=== PATIENT | female | born 1985 | race Caucasian/White ===

== ENCOUNTER 2018-02-09 14:41 | Emergency (ER) | payer SELFPAY ==
--- NOTE | 2018-02-09 15:45 | EDM.PDOCBH ---
ED HPI GENERAL MEDICAL PROBLEM - General Chief Complaint: General Stated Complaint: health check Time Seen by Provider: 02/09/18 15:11 Source of Information: Reports: Patient, Family (mother and father) History Limitations: Reports: No Limitations - History of Present Illness INITIAL COMMENTS - FREE TEXT/NARRATIVE: 32-year-old female is brought in by her parents over her mental health concerns. Reportedly the patient has been residing in [place] for the last few years. Parents report the end of January they received a phone call from her asking to come and get her. She apparently had moved into a hotel room. She was previously living with a sister [place]. She ran out of money and was asking for them to come and get her. They report they brought her home about 5 days ago. They have not yet established with a primary care mental health provider since returning to [place]. The patient is a poor historian. She laughs at inappropriate times is very tangential. She does not directly answer questions. She is denying any chronic medical conditions. She denies any current pain. No headaches, nausea, vomiting or any abdominal pain. The patient repeats over and over again that she just wants her own place she wants to go to "my place ". Her mother indicates that she is talking about the hotel that she was staying at [place]. Patient does not recall her last menstrual period. History is primarily obtained from her mother. 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 The patient reports last and she views meth was 2 weeks ago. Mother reports that there is been several questionable diagnosis including bipolar and schizoaffective, however, due to her methamphetamine abuse the diagnosis has been unclear. She is not currently on any psychiatric medications. She has been hospitalized numerous times for psychiatric evaluation. Patient reports that she's had suicide attempts in the past. She states that she is "made a noose several times ". She also reports that she has drink excessive amounts of alcohol in an attempt to take her life on several occasions. Refuses to tell me when her last attempt was. Parents became concerned today when she taxted her older sister [place] that she wanted to take her life. When parents asked about this she only will laugh. She does acknowledge that she sent this text but states this is all "part of my comedy. " Mom reports the methamphetamine abuse and the patient also reports that she abuses marijuana. Denies any major alcohol abuse. Past history includes a repair of a bimalleolar fracture to the ankle. She also had a with sounds like a benign cyst on her uterus which was drained about a year ago. Patient is not on any medications currently. Has been taking Tylenol PM and Advil PM to help with sleep. - Related Data Allergies Allergy/AdvReac Type Severity Reaction Status Date / Time Penicillins Allergy Hives Verified 02/09/18 14:55 Home Meds: Home Meds Gabapentin [Neurontin] 300 mg PO ASDIRECTED 02/09/18 [History] atoMOXetine HCl [Strattera] 0 mg PO DAILY 02/09/18 [History] hydrOXYzine HCl [hydrOXYzine] 10 mg PO DAILY 02/09/18 [History] Past Medical History Psychiatric History: Reports: ADD, ADHD, Other (See Below) Other Psychiatric History: possible bipolar, possible schizo, possible richi; 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 has been doing drugs since 28 yrs old; pt smokes,snorts and eats it.last treatment program about 6 months in [place] and feels it was about 9 month. Social & Family History - Tobacco Use Smoking Status *Q: Current Every Day Smoker Years of Tobacco use: 17 Packs/Tins Daily: 0.5 - Caffeine Use Caffeine Use: Reports: Coffee, Energy Drinks, Soda, Tea ED ROS GENERAL - Review of Systems Review Of Systems: See Below Constitutional: Denies: Fever, Chills, Decreased Appetite GI/Abdominal: Denies: Abdominal Pain, Nausea, Vomiting Neurological: Denies: Headache Psychiatric: Reports: Suicidal Ideation ED EXAM, BEHAVIORAL HEALTH - Physical Exam Exam: See Below Exam Limited By: No Limitations General Appearance: Alert, WD/WN, No Apparent Distress Eye Exam: Bilateral Eye: Normal Inspection Ears: Normal External Exam, Normal Canal, Hearing Grossly Normal, Normal TMs Throat/Mouth: Normal Inspection, Normal Lips, Normal Voice, No Airway Compromise Neck: Normal Inspection Respiratory/Chest: No Respiratory Distress, Lungs Clear, Normal Breath Sounds Cardiovascular: Normal Peripheral Pulses, No Murmur, Tachycardia GI/Abdominal: Soft, Non-Tender Neurological: Alert, Normal Mood/Affect, Normal Cognition Psychiatric: Poor Eye Contact, Uncooperative, Suicidal Thoughts, Tangential Thoughts, Other (inappropriate responses, delusions) Skin Exam: Warm, Dry, Normal color EKG INTERPRETATION EKG Date: 02/09/18 Time: 15:45 Rhythm: Other (sinus tach) Rate (Beats/Min): 126 [place]: Normal P-Wave: Present QRS: Normal ST-T: Normal QT: Normal Comparison: NA - No Prior EKG EKG Interpretation Comments: sinus tachycardia at 126 bpm. No ischemic changes. No LAD. No LVH. o IVCD. QTc within normal limits. Reviewed by myself and Dr. Wagner. COURSE, BEHAVIORAL HEALTH COMP - Course Vital Signs: Last Vital Signs Temp 98.1 F 02/09/18 19:55 Pulse 110 H 02/09/18 19:55 Resp 16 02/09/18 19:55 BP 137/92 H 02/09/18 19:55 Pulse Ox 98 02/09/18 19:55 Orders, Labs, Meds: Active Orders 24 hr Category Date Time Status EKG 12 Lead [EKG Documentation Completion] [RC] STAT Care 02/09/18 15:36 Active Pelvic Exam, Set Up [RC] ASDIRECTED Care 02/09/18 17:05 Active Suicide Precautions [RC] ASDIRECTED Care 02/09/18 15:42 Active OB Transvaginal [US] Stat Exams 02/09/18 17:05 Taken DRUG SCREEN, URINE [URCHEM] Stat Lab 02/09/18 16:44 Ordered GC/CHLAMYDIA BY PCR [MOLEC] Stat Lab 02/09/18 19:30 Ordered HCG QUANTITATIVE,SERUM [CHEM] Stat Lab 02/09/18 15:46 Ordered UA W/MICROSCOPIC [URIN] Stat Lab 02/09/18 16:44 Ordered One To One Therapy [BH] Stat Oth 02/09/18 15:42 Ordered Laboratory Tests 02/09/18 02/09/18 02/09/18 Range/Units 15:46 15:46 15:46 WBC 15.33 H (3.98-10.04) K/mm3 RBC 4.65 (3.98-5.22) M/mm3 Hgb 13.6 (11.2-15.7) gm/L Hct 39.6 (34.1-44.9) % MCV 85.2 (79.4-94.8) fl MCH 29.2 (25.6-32.2) pg MCHC 34.3 (32.2-35.5) g/dl RDW Std Deviation 40.5 (36.4-46.3) fL Plt Count 426 H (182-369) K/mm3 MPV 9.0 L (9.4-12.3) fl Neut % (Auto) 75.6 H (34.0-71.1) % Lymph % (Auto) 15.7 L (19.3-51.7) % [place] % (Auto) 6.5 (4.7-12.5) % Eos % (Auto) 1.7 (0.7-5.8) Baso % (Auto) 0.3 (0.1-1.2) % Neut # (Auto) 11.61 H (1.56-6.13) K/mm3 Lymph # (Auto) 2.40 (1.18-3.74) K/mm3 [place] # (Auto) 0.99 H (0.24-0.36) K/mm3 Eos # (Auto) 0.26 (0.04-0.36) K/mm3 Baso # (Auto) 0.04 (0.01-0.08) K/mm3 Sodium 138 (136-145) mEq/L Potassium 3.2 L (3.5-5.1) mEq/L Chloride 102 (98-107) mEq/L Carbon Dioxide 23 (21-32) mEq/L Anion Gap 16.2 H (5-15) BUN 10 (7-18) mg/dL Creatinine 0.8 (0.55-1.02) mg/dL Est Cr Clr Drug Dosing 99.99 mL/min Estimated GFR (MDRD) > 60 (>60) mL/min BUN/Creatinine Ratio 12.5 L (14-18) Glucose 108 H (74-106) mg/dL Calcium 8.3 L (8.5-10.1) mg/dL Total Bilirubin 0.2 (0.2-1.0) mg/dL AST 19 (15-37) U/L ALT 42 (14-59) U/L Alkaline Phosphatase 73 (46-116) U/L Total Protein 6.9 (6.4-8.2) g/dl Albumin 3.4 (3.4-5.0) g/dl Globulin 3.5 gm/dL Albumin/Globulin Ratio 1.0 (1-2) TSH 3rd Generation 4.243 H (0.358-3.74) uIU/mL HCG, Qual Positive H (NEGATIVE) HCG, Quant mIU/mL Urine Color (Yellow) Urine Appearance (Clear) Urine pH (5.0-8.0) Ur Specific Longs (1.005-1.030) Urine Protein (Negative) Urine Glucose (UA) (Negative) Urine Ketones (Negative) Urine Occult Blood (Negative) Urine Nitrite (Negative) Urine Bilirubin (Negative) Urine Urobilinogen (0.2-1.0) Ur Leukocyte Esterase (Negative) Urine RBC (0-5) /hpf Urine WBC (0-5) /hpf Ur Epithelial Cells (0-5) /hpf Urine Bacteria (FEW) /hpf Urine Mucus (FEW) /hpf Salicylates (2.8-20) mg/dL Urine Opiates Screen (NEGATIVE) Ur Buprenorphine Scrn (NEGATIVE) Ur Oxycodone Screen (NEGATIVE) Urine Methadone Screen (NEGATIVE) Ur Propoxyphene Screen (NEGATIVE) Acetaminophen 10 (10-30) ug/mL Ur Barbiturates Screen (NEGATIVE) Ur Tricyclics Screen (NEGATIVE) Ur Phencyclidine Scrn (NEGATIVE) Ur Amphetamine Screen (NEGATIVE) U Methamphetamines Scrn (NEGATIVE) U Benzodiazepines Scrn (NEGATIVE) U Cocaine Metab Screen (NEGATIVE) U Marijuana (THC) Screen (NEGATIVE) Ethyl Alcohol 0.00 (0.00) gm% 02/09/18 02/09/18 02/09/18 Range/Units 15:46 15:46 16:44 WBC (3.98-10.04) K/mm3 RBC (3.98-5.22) M/mm3 Hgb (11.2-15.7) gm/L Hct (34.1-44.9) % MCV (79.4-94.8) fl MCH (25.6-32.2) pg MCHC (32.2-35.5) g/dl RDW Std Deviation (36.4-46.3) fL Plt Count (182-369) K/mm3 MPV (9.4-12.3) fl Neut % (Auto) (34.0-71.1) % Lymph % (Auto) (19.3-51.7) % [place] % (Auto) (4.7-12.5) % Eos % (Auto) (0.7-5.8) Baso % (Auto) (0.1-1.2) % Neut # (Auto) (1.56-6.13) K/mm3 Lymph # (Auto) (1.18-3.74) K/mm3 [place] # (Auto) (0.24-0.36) K/mm3 Eos # (Auto) (0.04-0.36) K/mm3 Baso # (Auto) (0.01-0.08) K/mm3 Sodium (136-145) mEq/L Potassium (3.5-5.1) mEq/L Chloride (98-107) mEq/L Carbon Dioxide (21-32) mEq/L Anion Gap (5-15) BUN (7-18) mg/dL Creatinine (0.55-1.02) mg/dL Est Cr Clr Drug Dosing mL/min Estimated GFR (MDRD) (>60) mL/min BUN/Creatinine Ratio (14-18) Glucose (74-106) mg/dL Calcium (8.5-10.1) mg/dL Total Bilirubin (0.2-1.0) mg/dL AST (15-37) U/L ALT (14-59) U/L Alkaline Phosphatase (46-116) U/L Total Protein (6.4-8.2) g/dl Albumin (3.4-5.0) g/dl Globulin gm/dL Albumin/Globulin Ratio (1-2) TSH 3rd Generation (0.358-3.74) uIU/mL HCG, Qual (NEGATIVE) HCG, Quant 5110.0 mIU/mL Urine Color Light yellow (Yellow) Urine Appearance Slt cloudy H (Clear) Urine pH 7.0 (5.0-8.0) Ur Specific Longs 1.025 (1.005-1.030) Urine Protein Negative (Negative) Urine Glucose (UA) Negative (Negative) Urine Ketones Negative (Negative) Urine Occult Blood Negative (Negative) Urine Nitrite Negative (Negative) Urine Bilirubin Negative (Negative) Urine Urobilinogen 0.2 (0.2-1.0) Ur Leukocyte Esterase Trace H (Negative) Urine RBC 0-5 (0-5) /hpf Urine WBC 0-5 (0-5) /hpf Ur Epithelial Cells 5-10 H (0-5) /hpf Urine Bacteria Not seen (FEW) /hpf Urine Mucus Not seen (FEW) /hpf Salicylates 2.8 (2.8-20) mg/dL Urine Opiates Screen (NEGATIVE) Ur Buprenorphine Scrn (NEGATIVE) Ur Oxycodone Screen (NEGATIVE) Urine Methadone Screen (NEGATIVE) Ur Propoxyphene Screen (NEGATIVE) Acetaminophen (10-30) ug/mL Ur Barbiturates Screen (NEGATIVE) Ur Tricyclics Screen (NEGATIVE) Ur Phencyclidine Scrn (NEGATIVE) Ur Amphetamine Screen (NEGATIVE) U Methamphetamines Scrn (NEGATIVE) U Benzodiazepines Scrn (NEGATIVE) U Cocaine Metab Screen (NEGATIVE) U Marijuana (THC) Screen (NEGATIVE) Ethyl Alcohol (0.00) gm% 02/09/18 Range/Units 16:44 WBC (3.98-10.04) K/mm3 RBC (3.98-5.22) M/mm3 Hgb (11.2-15.7) gm/L Hct (34.1-44.9) % MCV (79.4-94.8) fl MCH (25.6-32.2) pg MCHC (32.2-35.5) g/dl RDW Std Deviation (36.4-46.3) fL Plt Count (182-369) K/mm3 MPV (9.4-12.3) fl Neut % (Auto) (34.0-71.1) % Lymph % (Auto) (19.3-51.7) % [place] % (Auto) (4.7-12.5) % Eos % (Auto) (0.7-5.8) Baso % (Auto) (0.1-1.2) % Neut # (Auto) (1.56-6.13) K/mm3 Lymph # (Auto) (1.18-3.74) K/mm3 [place] # (Auto) (0.24-0.36) K/mm3 Eos # (Auto) (0.04-0.36) K/mm3 Baso # (Auto) (0.01-0.08) K/mm3 Sodium (136-145) mEq/L Potassium (3.5-5.1) mEq/L Chloride (98-107) mEq/L Carbon Dioxide (21-32) mEq/L Anion Gap (5-15) BUN (7-18) mg/dL Creatinine (0.55-1.02) mg/dL Est Cr Clr Drug Dosing mL/min Estimated GFR (MDRD) (>60) mL/min BUN/Creatinine Ratio (14-18) Glucose (74-106) mg/dL Calcium (8.5-10.1) mg/dL Total Bilirubin (0.2-1.0) mg/dL AST (15-37) U/L ALT (14-59) U/L Alkaline Phosphatase (46-116) U/L Total Protein (6.4-8.2) g/dl Albumin (3.4-5.0) g/dl Globulin gm/dL Albumin/Globulin Ratio (1-2) TSH 3rd Generation (0.358-3.74) uIU/mL HCG, Qual (NEGATIVE) HCG, Quant mIU/mL Urine Color (Yellow) Urine Appearance (Clear) Urine pH (5.0-8.0) Ur Specific [place] (1.005-1.030) Urine Protein (Negative) Urine Glucose (UA) (Negative) Urine Ketones (Negative) Urine Occult Blood (Negative) Urine Nitrite (Negative) Urine Bilirubin (Negative) Urine Urobilinogen (0.2-1.0) Ur Leukocyte Esterase (Negative) Urine RBC (0-5) /hpf Urine WBC (0-5) /hpf Ur Epithelial Cells (0-5) /hpf Urine Bacteria (FEW) /hpf Urine Mucus (FEW) /hpf Salicylates (2.8-20) mg/dL Urine Opiates Screen Negative (NEGATIVE) Ur Buprenorphine Scrn Negative (NEGATIVE) Ur Oxycodone Screen Negative (NEGATIVE) Urine Methadone Screen Negative (NEGATIVE) Ur Propoxyphene Screen Negative (NEGATIVE) Acetaminophen (10-30) ug/mL Ur Barbiturates Screen Negative (NEGATIVE) Ur Tricyclics Screen Negative (NEGATIVE) Ur Phencyclidine Scrn Negative (NEGATIVE) Ur Amphetamine Screen Negative (NEGATIVE) U Methamphetamines Scrn Negative (NEGATIVE) U Benzodiazepines Scrn Negative (NEGATIVE) U Cocaine Metab Screen Negative (NEGATIVE) U Marijuana (THC) Screen Negative (NEGATIVE) Ethyl Alcohol (0.00) gm% Medications Discontinued Medications Generic Name Dose Route Start Last Admin Trade Name Freq PRN Reason Stop Dose Admin Potassium Chloride 40 meq 02/09/18 16:41 02/09/18 17:23 Klor-Con M20 PO 02/09/18 16:42 40 meq ONETIME ONE Administration Re-Assessment/Re-Exam: 17:05 HCG returned positive. I then ordered a quantitative. it is 5000. To ensure that she does not have anectopic or other complications I ordered a transvaginal ultrasound. I did perform a pelvic exam which did not show any additional bleeding. Cervix was closed. Informed patient of her lab results. EKG shows sinus tachycardia. Patient denies any vaginal bleeding. She reports some cramping. 17:55 I informed the patient's parents of the lab results as they are directly involved in her care and given her stat will need to help ensure that she gets proper care when she returns. Asked about the gabapentin, Strattera and hydroxyzine she is listed as being on. Mom states this far she knows she has not been taking these recently. The only medication she has been receiving recently has been Tylenol when necessary Advil PM to help her sleep. Mom reports that she has not slept in several weeks. Mom also reports that she was previously on Wellbutrin and what to do. She did not do well on Wellbutrin and this caused her fair amount of agitation. Had significant weight gain on the what to do. e 19:51 First trimester obstetrical ultrasound: Multiple real-time images were obtained transvaginally. Comparison: No previous study for current . Dates: LMP: ? Current ultrasound: FRANCIA 10/06/18, gestational age 5 weeks 6 days Single intrauterine gestational sac is seen. Yolk sac is noted. Small pole appears to be present. No subchorionic hemorrhage is seen. Maternal ovaries appear within normal limits. Measurements: Gestational sac: 0.73 cm - 5 weeks 3 days [place]-rump length: 0.26 cm - 5 weeks 6 days Heart rate: No cardiac activity is seen at this time. Impression: 1. Single intrauterine gestation. Dates as noted above. 2. No heart activity is seen most likely relating to early gestational age. Recommend follow-up study in 11 days to further evaluate. 20:24 Vitals at this time her heart rate of 110, temp of 98.1, blood pressure 137/96 and respirations of 16. [facility] in [place] is full. Spoke with Ra, Dr. Johnston, psychiatist in [place]. She agrees to accept the patient. Emergency jail paperwork has been filed. She will transferred by [facility] Department to [place] [facility]. Updated parents on the patient's stay. She will go to [place]. Medical Clearance: 02/09/18 20:27 Patient is medically clear to go to [facility] in [place]. Dr. Jamarcus grant. Emergency jail paperwork filed. She'll go by . Recommended that she follow-up with OB when she returns. Discharge vs Psych Eval/Treatment:: 02/09/18 20:28 Patient to go to [facility] in [place]. Dr. desire grant. She'll be a direct admission to the psychiatry floor. Departure - Departure Time of Disposition: 20:28 Disposition: DC/Tfer to Psych Hosp/Unit 65 Condition: Fair Clinical Impression: Psychotic disorder, , History of drug abuse - Discharge Information Referrals: PCP,Not In Area [Primary Care Provider] - Forms: ED Department Discharge Additional Instructions: Patient to go by [facility] to the [facility]. Dr. Hawk accepting. - My Orders Last 24 Hours: My Active Orders 02/09/18 15:36 EKG 12 Lead [EKG Documentation Completion] [RC] STAT 02/09/18 15:42 Suicide Precautions [RC] ASDIRECTED One To One Therapy [BH] Stat 02/09/18 15:46 HCG QUANTITATIVE,SERUM [CHEM] Stat 02/09/18 16:44 DRUG SCREEN, URINE [URCHEM] Stat UA W/MICROSCOPIC [URIN] Stat 02/09/18 17:05 Pelvic Exam, Set Up [RC] ASDIRECTED OB Transvaginal [US] Stat 02/09/18 19:30 GC/CHLAMYDIA BY PCR [MOLEC] Stat - Assessment/Plan Last 24 Hours: My Active Orders 02/09/18 15:36 EKG 12 Lead [EKG Documentation Completion] [RC] STAT 02/09/18 15:42 Suicide Precautions [RC] ASDIRECTED One To One Therapy [BH] Stat 02/09/18 15:46 HCG QUANTITATIVE,SERUM [CHEM] Stat 02/09/18 16:44 DRUG SCREEN, URINE [URCHEM] Stat UA W/MICROSCOPIC [URIN] Stat 02/09/18 17:05 Pelvic Exam, Set Up [RC] ASDIRECTED OB Transvaginal [US] Stat 02/09/18 19:30 GC/CHLAMYDIA BY PCR [MOLEC] Stat
[2018-02-09 16:20] LABS: ACETAMINOPHEN 10 ug/mL (10-30)
[2018-02-09] MEDS ORDERED: Potassium Chloride 20 MEQ Tab.ER PO ONE (16:41)
[2018-02-09 21:20] LABS: C. TRACHOMATIS BY PCR NOT DETECTED; N. GONORRHOEAE BY PCR NOT DETECTED
--- NOTE | 2018-02-10 14:16 | US ---
First trimester obstetrical ultrasound: Multiple real-time images were obtained transvaginally. Comparison: No previous study for current . Dates: LMP: ? Current ultrasound: FRANCIA 10/06/18, gestational age 5 weeks 6 days Single intrauterine gestational sac is seen. Yolk sac is noted. Small pole appears to be present. No subchorionic hemorrhage is seen. Maternal ovaries appear within normal limits. Measurements: Gestational sac: 0.73 cm - 5 weeks 3 days [place]-rump length: 0.26 cm - 5 weeks 6 days Heart rate: No cardiac activity is seen at this time. Impression: 1. Single intrauterine gestation. Dates as noted above. 2. No heart activity is seen most likely relating to early gestational age. Recommend follow-up study in 11 days to further evaluate. Diagnostic code #3 Agree with preliminary report issued by [facility] ([facility] preliminary report dictated on 02/09/18, 8:59 PM Central Time)
== END 2018-02-09 21:10 ==
LOC: JD.ED 14:41
DX: F29 Unspecified psychosis not due to a substance or known physiological condition (principal); F15.10 Other stimulant abuse, uncomplicated; F90.9 Attention-deficit hyperactivity disorder, unspecified type; F17.210 Nicotine dependence, cigarettes, uncomplicated; Z33.1 Pregnant state, incidental; Z88.0 Allergy status to penicillin; Z79.899 Other long term (current) drug therapy
CPT/HCPCS: 36415; 76817; 80053; 80306; 81001; 84443; 84702; 84703; 85025; 87210; 87491; 87591; 87808; 93005; 99285; A9270; G0480; 93010; 99284

== ENCOUNTER 2018-03-16 14:31 | Emergency (ER) | payer MEDICAID, OTHER ==
--- NOTE | 2018-03-16 15:07 | EDM.PDOC ---
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 Patient states for the past 3 days she's been expressing intermittent bleeding range from bright red blood in the morning upon awakening to light pink color with wiping after utilizing the bathroom. She's had some intermittent lower nominal cramps described as mild in nature. This is her first . She does not recall her last menstrual cycle. She has been sober from methamphetamines for almost 60 days when she found out she was . She does have a history of bipolar and has taken all her medications as prescribed. She is currently not smoking. Alcohol none. Recreational drug use none. Lower Pelvic Pain Score (Numeric/FACES): 2 - Related Data Allergies Allergy/AdvReac Type Severity Reaction Status Date / Time Penicillins Allergy Hives Verified 02/09/18 14:55 Home Meds: Home Meds hydrOXYzine HCl [hydrOXYzine] 10 mg PO DAILY 02/09/18 [History] Haloperidol [Haldol] 3 mg PO DAILY 03/16/18 [History] PNV95/Ferrous Fumarate/FA [ Tablet] 1 tab PO DAILY 03/16/18 [History] diphenhydrAMINE [Benadryl] 50 mg PO BEDTIME 03/16/18 [History] Past Medical History Psychiatric History: Reports: ADD, ADHD, Other (See Below) Other Psychiatric History: possible bipolar, possible schizo, possible richi; 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 has been doing drugs since 28 yrs old; pt smokes,snorts and eats it.last treatment program about 6 months in [place] and feels it was about 9 month. Social & Family History - Tobacco Use Smoking Status *Q: Current Every Day Smoker Years of Tobacco use: 4 Packs/Tins Daily: 1 - Caffeine Use Caffeine Use: Reports: Coffee, Soda, Tea - Recreational Drug Use Recreational Drug Use: Yes Recreational Drug Type: Reports: Marijuana/Hashish, Methamphetamine Other Recreational Drug Type: last used 60 days ago ED ROS GENERAL - Review of Systems Review Of Systems: ROS reveals no pertinent complaints other than HPI. ED EXAM - Physical Exam Exam: See Below Exam Limited By: No Limitations General Appearance: Alert, WD/WN, No Apparent Distress Ears: Hearing Grossly Normal Nose: Normal Inspection Throat/Mouth: Normal Voice, No Airway Compromise Neck: Normal Inspection, Supple Respiratory/Chest: No Respiratory Distress, Lungs Clear, Normal Breath Sounds, No Accessory Muscle Use Cardiovascular: Normal Peripheral Pulses, Regular Rate, Rhythm GI/Abdominal Exam: Normal Bowel Sounds, Soft, Non-Tender, No Organomegaly, No Distention Back Exam: Normal Inspection Extremities: Normal Inspection Neurological: Alert, Oriented, CN II-XII Intact, Normal Cognition, No Motor/ Sensory Deficits Psychiatric: Normal Affect, Normal Mood Skin Exam: Warm, Dry, Intact, Normal Color Course - Vital Signs Last Recorded V/S: Last Vital Signs Temp 98.4 F 03/16/18 14:43 Pulse 96 03/16/18 14:43 Resp 20 03/16/18 14:43 BP 118/82 03/16/18 14:43 Pulse Ox 99 03/16/18 14:43 - Orders/Labs/Meds Orders: Active Orders 24 hr Category Date Time Status ABO/RH TYPE [BBK] Stat Lab 03/16/18 15:25 Results DRUG SCREEN, URINE [URCHEM] Stat Lab 03/16/18 15:17 Ordered HCG QUALITATIVE,URINE [URCHEM] Stat Lab 03/16/18 15:17 Ordered PATIENT RETYPE [BBK] Stat Lab 03/16/18 15:25 Results Labs: Laboratory Tests 03/16/18 03/16/18 03/16/18 Range/Units 15:17 15:17 15:17 WBC (3.98-10.04) K/mm3 RBC (3.98-5.22) M/mm3 Hgb (11.2-15.7) gm/L Hct (34.1-44.9) % MCV (79.4-94.8) fl MCH (25.6-32.2) pg MCHC (32.2-35.5) g/dl RDW Std Deviation (36.4-46.3) fL Plt Count (182-369) K/mm3 MPV (9.4-12.3) fl Neutrophils % (Manual) (40-60) % Band Neutrophils % (0-10) % Lymphocytes % (Manual) (20-40) % Atypical Lymphs % % Monocytes % (Manual) (2-10) % Eosinophils % (Manual) (0.7-5.8) % Basophils % (Manual) (0.1-1.2) Platelet Estimate Plt Morphology Comment RBC Morph Comment Sodium (136-145) mEq/L Potassium (3.5-5.1) mEq/L Chloride (98-107) mEq/L Carbon Dioxide (21-32) mEq/L Anion Gap (5-15) BUN (7-18) mg/dL Creatinine (0.55-1.02) mg/dL Est Cr Clr Drug Dosing mL/min Estimated GFR (MDRD) (>60) mL/min BUN/Creatinine Ratio (14-18) Glucose (74-106) mg/dL Calcium (8.5-10.1) mg/dL Total Bilirubin (0.2-1.0) mg/dL AST (15-37) U/L ALT (14-59) U/L Alkaline Phosphatase (46-116) U/L C-Reactive Protein (<1.0) mg/dL Total Protein (6.4-8.2) g/dl Albumin (3.4-5.0) g/dl Globulin gm/dL Albumin/Globulin Ratio (1-2) TSH 3rd Generation (0.358-3.74) uIU/mL Urine Color Yellow (Yellow) Urine Appearance Slt cloudy H (Clear) Urine pH 7.0 (5.0-8.0) Ur Specific [place] 1.015 (1.005-1.030) Urine Protein 1+ H (Negative) Urine Glucose (UA) Negative (Negative) Urine Ketones Negative (Negative) Urine Occult Blood 3+ H (Negative) Urine Nitrite Negative (Negative) Urine Bilirubin Negative (Negative) Urine Urobilinogen 0.2 (0.2-1.0) Ur Leukocyte Esterase Negative (Negative) Urine RBC 5-10 H (0-5) /hpf Urine WBC 0-5 (0-5) /hpf Ur Epithelial Cells 10-20 H (0-5) /hpf Amorphous Sediment Moderate H (NOT SEEN) /hpf Urine Bacteria Few (FEW) /hpf Urine Mucus Not seen (FEW) /hpf Urine HCG, Qual Positive (NEGATIVE) Urine Opiates Screen Negative (NEGATIVE) Ur Buprenorphine Scrn Negative (NEGATIVE) Ur Oxycodone Screen Negative (NEGATIVE) Urine Methadone Screen Negative (NEGATIVE) Ur Propoxyphene Screen Negative (NEGATIVE) Ur Barbiturates Screen Negative (NEGATIVE) Ur Tricyclics Screen Negative (NEGATIVE) Ur Phencyclidine Scrn Negative (NEGATIVE) Ur Amphetamine Screen Negative (NEGATIVE) U Methamphetamines Scrn Negative (NEGATIVE) U Benzodiazepines Scrn Negative (NEGATIVE) U Cocaine Metab Screen Negative (NEGATIVE) U Marijuana (THC) Screen Negative (NEGATIVE) Blood Type 03/16/18 03/16/18 03/16/18 Range/Units 15:25 15:25 15:25 WBC 10.73 H (3.98-10.04) K/mm3 RBC 4.77 (3.98-5.22) M/mm3 Hgb 13.8 (11.2-15.7) gm/L Hct 40.5 (34.1-44.9) % MCV 84.9 (79.4-94.8) fl MCH 28.9 (25.6-32.2) pg MCHC 34.1 (32.2-35.5) g/dl RDW Std Deviation 37.4 (36.4-46.3) fL Plt Count 385 H (182-369) K/mm3 MPV 8.8 L (9.4-12.3) fl Neutrophils % (Manual) 65 H (40-60) % Band Neutrophils % 0 (0-10) % Lymphocytes % (Manual) 24 (20-40) % Atypical Lymphs % 0 % Monocytes % (Manual) 5 (2-10) % Eosinophils % (Manual) 6 H (0.7-5.8) % Basophils % (Manual) 0 L (0.1-1.2) Platelet Estimate Adequate Plt Morphology Comment Normal RBC Morph Comment Normal Sodium 139 (136-145) mEq/L Potassium 4.1 (3.5-5.1) mEq/L Chloride 103 (98-107) mEq/L Carbon Dioxide 25 (21-32) mEq/L Anion Gap 15.1 H (5-15) BUN 11 (7-18) mg/dL Creatinine 0.7 (0.55-1.02) mg/dL Est Cr Clr Drug Dosing 114.28 mL/min Estimated GFR (MDRD) > 60 (>60) mL/min BUN/Creatinine Ratio 15.7 (14-18) Glucose 95 (74-106) mg/dL Calcium 8.7 (8.5-10.1) mg/dL Total Bilirubin 0.2 (0.2-1.0) mg/dL AST 13 L (15-37) U/L ALT 21 (14-59) U/L Alkaline Phosphatase 60 (46-116) U/L C-Reactive Protein 1.9 H* (<1.0) mg/dL Total Protein 6.9 (6.4-8.2) g/dl Albumin 3.3 L (3.4-5.0) g/dl Globulin 3.6 gm/dL Albumin/Globulin Ratio 0.9 L (1-2) TSH 3rd Generation 2.739 (0.358-3.74) uIU/mL Urine Color (Yellow) Urine Appearance (Clear) Urine pH (5.0-8.0) Ur Specific [place] (1.005-1.030) Urine Protein (Negative) Urine Glucose (UA) (Negative) Urine Ketones (Negative) Urine Occult Blood (Negative) Urine Nitrite (Negative) Urine Bilirubin (Negative) Urine Urobilinogen (0.2-1.0) Ur Leukocyte Esterase (Negative) Urine RBC (0-5) /hpf Urine WBC (0-5) /hpf Ur Epithelial Cells (0-5) /hpf Amorphous Sediment (NOT SEEN) /hpf Urine Bacteria (FEW) /hpf Urine Mucus (FEW) /hpf Urine HCG, Qual (NEGATIVE) Urine Opiates Screen (NEGATIVE) Ur Buprenorphine Scrn (NEGATIVE) Ur Oxycodone Screen (NEGATIVE) Urine Methadone Screen (NEGATIVE) Ur Propoxyphene Screen (NEGATIVE) Ur Barbiturates Screen (NEGATIVE) Ur Tricyclics Screen (NEGATIVE) Ur Phencyclidine Scrn (NEGATIVE) Ur Amphetamine Screen (NEGATIVE) U Methamphetamines Scrn (NEGATIVE) U Benzodiazepines Scrn (NEGATIVE) U Cocaine Metab Screen (NEGATIVE) U Marijuana (THC) Screen (NEGATIVE) Blood Type O POSITIVE - Re-Assessments/Exams Free Text/Narrative Re-Assessment/Exam: Initial labs and studies will include: CBC, chem 14, CRP, urine drug screen, TSH , ABO/Rh type, HCG, UA, and OB transvaginal ultrasound. Labs reviewed: CBC essentially normal. CMP was essentially normal as well. CRP mildly elevated 1.9. TSH normal. UA 3+ occult blood consistent with vaginal bleeding, rbc's 5-10, urine epithelial cells 10-20, amorphous sediment moderate. Urine drug tox negative. Blood type: O+. 1617 Awaiting for ultrasound report. 03/16/18 16:37 First trimester obstetrical ultrasound: Multiple real-time images were obtained transvaginally. Comparison: Previous ultrasound exam at 02/09/18. Dates: Current ultrasound: FRANCIA 10/26/18, gestational age 8 weeks 0 days Previous ultrasound (02/09/18): FR[facility]IA 10/06/18, gestational age 10 weeks 6 days Single intrauterine gestation is seen. Amniotic fluid volume is normal. Measurements: [place]-rump length: 1.60 cm - 8 weeks 0 days Heart rate: No heart activity is seen. Maternal adnexa: Within normal limits Small subchorionic hemorrhage is seen. Impression: 1. Single intrauterine gestation. No heart activity is seen compatible with nonviable . 2. Small subchorionic hemorrhage is seen. Discussed results of ultrasound with the patient. She has an appt with Dr. Hidalgo scheduled for this coming Saturday and would like to speak with her in person to discuss options. [address] speak [address] Hidalgo, she will arrange an appt for the patient to be evaluated tomorrow. Her office will call the patient. The patient remained hemodynamically stable while under my care in the E.D. I discussed the concerning symptoms for which to returnto the E.D. with the patient/family. The patient/family verbalized understanding. All questions were answered. Departure - Departure Time of Disposition: 16:45 Disposition: Home, Self-Care 01 Condition: Good Clinical Impression: Incomplete - Discharge Information *PRESCRIPTION DRUG MONITORING PROGRAM REVIEWED*: Not Applicable *COPY OF PRESCRIPTION DRUG MONITORING REPORT IN PATIENT JOSE: Not Applicable Instructions: Miscarriage Referrals: Radha Hidalgo MD [Primary Care Provider] - Forms: ED Department Discharge Additional Instructions: Dr. Hidalgo's Office will call you tomorrow for appt time. Please return to the E.D. if you experience bleeding of more then one pad in one hour over two hrs. Please return if you develop any new or worsening pain or any new symptoms. Push the fluids. Take ibuprofen 600 mg's every 6 hrs for pain. - My Orders Last 24 Hours: My Active Orders 03/16/18 15:17 DRUG SCREEN, URINE [URCHEM] Stat HCG QUALITATIVE,URINE [URCHEM] Stat 03/16/18 15:25 ABO/RH TYPE [BBK] Stat PATIENT RETYPE [BBK] Stat - Assessment/Plan Last 24 Hours: My Active Orders 03/16/18 15:17 DRUG SCREEN, URINE [URCHEM] Stat HCG QUALITATIVE,URINE [URCHEM] Stat 03/16/18 15:25 ABO/RH TYPE [BBK] Stat PATIENT RETYPE [BBK] Stat
--- NOTE | 2018-03-16 16:24 | US ---
First trimester obstetrical ultrasound: Multiple real-time images were obtained transvaginally. Comparison: Previous ultrasound exam at 02/09/18. Dates: Current ultrasound: FR[facility]IA 10/26/18, gestational age 8 weeks 0 days Previous ultrasound (02/09/18): [facility] 10/06/18, gestational age 10 weeks 6 days Single intrauterine gestation is seen. Amniotic fluid volume is normal. Measurements: [place]-rump length: 1.60 cm - 8 weeks 0 days Heart rate: No heart activity is seen. Maternal adnexa: Within normal limits Small subchorionic hemorrhage is seen. Impression: 1. Single intrauterine gestation. No heart activity is seen compatible with nonviable . 2. Small subchorionic hemorrhage is seen. Diagnostic code #5
== END 2018-03-16 16:55 | disposition home or self-care (01) ==
LOC: JD.ED 14:31
DX: O03.4 Incomplete spontaneous abortion without complication (principal)
CPT/HCPCS: 36415; 76817; 76817-26; 80053; 80306; 81001; 81025; 84443; 85007; 85027; 86140; 86900; 86901; 99283; 99284-25

== ENCOUNTER 2020-07-20 15:13 | Emergency (ER) | payer BC, MEDICAID ==
[2020-07-20] MEDS ORDERED: Fluorescein 1 MG Ophth Strip EYERT ONE (15:41)
--- NOTE | 2020-07-20 15:44 | EDM.PDOC ---
ED HPI GENERAL MEDICAL PROBLEM - General Chief Complaint: Eye Problems Stated Complaint: R EYE COMPLAINT Time Seen by Provider: 07/20/20 15:26 Source of Information: Reports: Patient, RN Notes Reviewed History Limitations: Reports: No Limitations - History of Present Illness INITIAL COMMENTS - FREE TEXT/NARRATIVE: Patient is a 35-year-old female who presents to the ED for her right thigh pain. The patient notes that she woke up this morning with a reddened right eye, seem to be watery and painful. This developed around 6 AM. She denies any blurry vision or double vision, she does not wear contacts. She was not grinding any sort of metal or anything he does not think there is anything in her eye she does not characterize a foreign body sensation. She states it is just painful, and red. Eyelids do not seem to be red. Patient's had no fevers or chills, cough or shortness of breath. She notes she is light sensitive to the eye. Right Eye Pain Score (Numeric/FACES): 7 - Related Data Allergies Allergy/AdvReac Type Severity Reaction Status Date / Time Penicillins Allergy Hives Verified 02/09/18 14:55 Home Meds: Home Meds hydrOXYzine HCL [hydrOXYzine] 10 mg PO DAILY 02/09/18 [History] Pnv No.95/Ferrous Fum/Folic AC [ Tablet] 1 tab PO DAILY 03/16/18 [History] diphenhydrAMINE [Benadryl] 50 mg PO BEDTIME 03/16/18 [History] haloperidoL [Haldol] 3 mg PO DAILY 03/16/18 [History] Erythromycin Base [Erythromycin 0.5% Ophth Oint] 1 applic OP Q4H #1 tube 07/20/20 [Rx] Ketorolac [Acular 0.5% Ophth Soln] 1 drop OP Q6H PRN #1 bottle 07/20/20 [Rx] Past Medical History Psychiatric History: Reports: ADD, ADHD, Other (See Below) Other Psychiatric History: possible bipolar, possible schizo, possible richi; 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 has been doing drugs since 28 yrs old; pt smokes,snorts and eats it.last treatment program about 6 months in [place] and feels it was about 9 month. Social & Family History - Tobacco Use Tobacco Use Status *Q: Current Every Day Tobacco User Years of Tobacco use: 6 Packs/Tins Daily: 0.5 - Caffeine Use Caffeine Use: Reports: Soda - Recreational Drug Use Recreational Drug Use: No ED ROS GENERAL - Review of Systems Review Of Systems: Comprehensive ROS is negative, except as noted in HPI. ED EXAM GENERAL W FULL EYE - Physical Exam Exam: See Below Exam Limited By: No Limitations General Appearance: Alert, WD/WN, No Apparent Distress Eye Exam: Bilateral Eye: EOMI, Normal Inspection, PERRL Conjunctiva & Sclera: Bilateral: Injected (worse on the right) Cornea Exam: Right: Corneal Abrasion (to the center of eye just below the pupil), Left: Normal Appearance, Bilateral: Examined with Flourescein Extraocular Movements: Bilateral: Intact Pupils: Normal Accommodation Pupillary Size: Bilateral: 3 mm Pupillary Reaction: Bilateral: Brisk Respiratory/Chest: No Respiratory Distress, Lungs Clear, Normal Breath Sounds, No Accessory Muscle Use, Chest Non-Tender Cardiovascular: Normal Peripheral Pulses, Regular Rate, Rhythm, No Murmur Extremities: Normal Inspection, Normal Capillary Refill Neurological: Alert, Oriented, Normal Cognition, No Motor/Sensory Deficits Psychiatric: Normal Affect, Normal Mood Skin Exam: Warm, Dry, Intact, Normal Color, No Rash Course - Vital Signs Last Recorded V/S: Last Vital Signs Temp 97.7 F 07/20/20 15:20 Pulse 107 H 07/20/20 15:20 Resp 20 07/20/20 15:20 BP 159/107 H 07/20/20 15:20 Pulse Ox 98 07/20/20 15:20 - Orders/Labs/Meds Orders: Active Orders 24 hr Category Date Time Status Ketorolac [Acular 0.5% Ophth Soln] Med 07/20/20 17:00 Active 1 ml EYERT QID Medication Orders Ketorolac Tromethamine (Acular 0.5% Ophth Soln) 1 ml EYERT QID [facility] Meds: Medications Generic Name Dose Route Start Last Admin Trade Name Freq PRN Reason Stop Dose Admin Ketorolac Tromethamine 1 ml 07/20/20 17:00 Acular 0.5% Ophth Soln EYERT QID ADALI Discontinued Medications Generic Name Dose Route Start Last Admin Trade Name Freq PRN Reason Stop Dose Admin Erythromycin 1 gm 07/20/20 15:48 Erythromycin 0.5% Ophth Oint EYERT 07/20/20 15:49 ONETIME ONE Fluorescein Sodium 1 mg 07/20/20 15:41 07/20/20 15:44 Ful-Tiara EYERT 07/20/20 15:42 1 mg ONETIME ONE Administration - Re-Assessments/Exams Free Text/Narrative Re-Assessment/Exam: 07/20/20 15:43 Patient presents to the ED for her right eye pain. We will examine her eye with fluorescein for corneal abrasion, due to the patient rubbing her eye throughout the day. Likely she could have woken up with a conjunctivitis. Probably get her home with some antibiotic ointment or drops for management. 07/20/20 16:27 Patient left prior to getting her prescriptions from the ER. 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 Departure - Departure Time of Disposition: 15:50 Disposition: [place] 07 Condition: Good Clinical Impression: Corneal abrasion, right Qualifiers: Encounter type: initial encounter Qualified Code(s): S05.01XA - Injury of conjunctiva and corneal abrasion without foreign body, right eye, initial encounter - Discharge Information *PRESCRIPTION DRUG MONITORING PROGRAM REVIEWED*: No *COPY OF PRESCRIPTION DRUG MONITORING REPORT IN PATIENT JOSE: No Prescriptions: Ketorolac [Acular 0.5% Ophth Soln] 1 drop OP Q6H PRN #1 bottle PRN Reason: Pain Erythromycin Base [Erythromycin 0.5% Ophth Oint] 1 applic OP Q4H #1 tube Instructions: Corneal Abrasion, [id number] Referrals: Michael Alvarez MD [Primary Care Provider] - Forms: ED Department Discharge Additional Instructions: You have been evaluated in the ED today for your right eye pain/redness. You were identified to have a corneal abrasion to the right eye. You were given some pain drops for your eye, ketorolac, please instill 2 drops to the affected eye every 6 hours at least for the next 24 hours . You may use this up to 2-3 days if needed. Please use the erythromycin ointment, 1 cm ribbon to the lower affected eyelid margin 4 times daily for the next 3-5 days. Recommend that you follow up with optometry [facility] for a more thorough evaluation and to make sure that everything is healing appropriately. You will have to call around and schedule yourself an appointment with the next available provider if you do not already have a current eye doctor. Please return to the ED if your symptoms should change or worsen. Sepsis Event Note (ED) - Evaluation Sepsis Screening Result: No Definite Risk - Focused Exam Vital Signs: Vital Signs Temp Pulse Resp BP Pulse Ox 07/20/20 15:20 97.7 F 107 H 20 159/107 H 98 - My Orders Last 24 Hours: My Active Orders 07/20/20 17:00 Ketorolac [Acular 0.5% Ophth Soln] 1 ml EYERT QID - Assessment/Plan Last 24 Hours: My Active Orders 07/20/20 17:00 Ketorolac [Acular 0.5% Ophth Soln] 1 ml EYERT QID
[2020-07-20] MEDS ORDERED: Erythromycin Base 0.5% Ophth Oint 1 GM Tube EYERT ONE (15:48)
[2020-07-20] MEDS ORDERED: Ketorolac 0.5% Ophth Soln 5 ML Bottle EYERT SCH (17:00)
== END 2020-07-20 16:00 | disposition left against medical advice (07) ==
LOC: JD.ED 15:13
DX: S05.01XA Injury of conjunctiva and corneal abrasion without foreign body, right eye, initial encounter (principal); F17.210 Nicotine dependence, cigarettes, uncomplicated; Z88.0 Allergy status to penicillin; X58.XXXA Exposure to other specified factors, initial encounter
CPT/HCPCS: 99283; A9270-GY

== ENCOUNTER 2020-09-14 10:00 | Emergency (ER) | payer BC ==
--- NOTE | 2020-09-14 10:41 | EDM.PDOCBH ---
ED HPI GENERAL MEDICAL PROBLEM - General Chief Complaint: Behavioral/Psych Stated Complaint: MENTAL EVAL Time Seen by Provider: 09/14/20 10:41 Source of Information: Reports: Patient History Limitations: Reports: No Limitations - History of Present Illness INITIAL COMMENTS - FREE TEXT/NARRATIVE: 35-year-old female brought to the ED by local [facility]'s department. Apparently she has a court order to be admitted to a psychiatric facility for evaluation. Patient is known to have bipolar affective disorder aggravated by substance abuse primarily with methamphetamines which he admits to be using recently. She calls it partying. She had several posts on Facebook which were quite disturbing indicating that she wanted to go on a killing spray in our local [employer]--where she is currently employed- with a gun that she would purchase from [employer] which is a local [employer] store here in [place] which does carry guns and ammunition. She admits that she did go off her medications for a few days because she wanted to green party. She states that she is back on them now. This includes Haldol 3 mg daily and 10 mg of hydroxyzine at bedtime to help sleep and occasionally Benadryl as well. Patient laughs inappropriately at times. She will answer questions appropriately but nurses appreciated that some of her answers were rather inappropriate. She does not appear to be actively hallucinating. She denies possibility of . She denies any recent use of intravenous drugs. She appears quite tired at this time since police picked her up this morning and brought her to the ED for medical clearance evaluation. She states she was partying until about 3 AM this morning. She has not yet had anything to eat or drink. Onset: Unknown/Unsure (Sounds of things with his deteriorated since last admission to [facility] in early August of this year. Certainly mental health is deteriorated over the last week for sure.) Duration: Day(s):, Getting Worse Location: Reports: Generalized (Neurolyse deterioration mental health aggravated by noncompliance with current medications which include an antipsychotic aggravated by recent use of methamphetamines on a regular basis mixed with alcohol) Quality: Reports: Other (Admits on Facebook at least [address] of purchasing a gun at [employer] here in [place] and shooting everybody that she can in the [employer] store.) Severity: Moderate Improves with: Reports: Other (Apparently she is somewhat improved since starting back her medications 2 days ago.) Worsens with: Reports: Other (Condition has deteriorated due to noncompliance with medications and) Context: Reports: Other (Acute psychosis or psychotic behaviors associated with methamphetamine use and alcohol and noncompliance with medications. I believe her primary history is that of bipolar affective disorder.). Denies: Activity ( use of methamphetamines and alcohol.), Exercise, Lifting, Sick Contact, Trauma Associated Symptoms: Reports: Cough (Productive), Loss of Appetite, Malaise. Denies: Confusion, Chest Pain, cough w sputum ( she states it is from smoking.), Diaphoresis, Fever/Chills, Headaches, Nausea/Vomiting, Rash, Seizure, Shortness of Breath, Syncope, Weakness Treatments [employer]: Reports: Other (see below) (1.) - Related Data Allergies Allergy/AdvReac Type Severity Reaction Status Date / Time Penicillins Allergy Hives Verified 09/14/20 10:20 Home Meds: Home Meds haloperidoL [Haldol] 4 mg PO BEDTIME 03/16/18 [History] Topiramate [Topamax] 25 mg PO BID 09/14/20 [History] atoMOXetine [Strattera] 0 mg PO 09/14/20 [History] Past Medical History : 1 Para: 0 (This is difficult to pinpoint for sure as the patient laughed inappropriately during our conversation about pregnancies) Psychiatric History: Reports: ADD, ADHD, Addiction (Continued use of methamphetamines and alcohol.), Other (See Below) Other Psychiatric History: possible bipolar, possible schizo, possible richi; 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 has been doing drugs since 28 yrs old; pt smokes,snorts and eats it.last treatment program about 6 months in [place] and feels it was about 9 month. Social & Family History - Caffeine Use Caffeine Use: Reports: Soda - Living Situation & Occupation Living situation: Reports: Single Occupation: Employed ED ROS GENERAL - Review of Systems Review Of Systems: See Below Constitutional: Reports: Fatigue (Mike tired since she was parting till 3:00 this morning.), Weight Gain (He states weight gain.). Denies: Fever, Chills HEENT: Reports: No Symptoms Respiratory: Reports: Cough Cardiovascular: Reports: No Symptoms (Occasional nonproductive cough.) Endocrine: Reports: No Symptoms GI/Abdominal: Reports: Decreased Appetite : Reports: No Symptoms Musculoskeletal: Reports: No Symptoms Skin: Reports: No Symptoms Neurological: Reports: No Symptoms. Denies: Confusion, Dizziness, Headache, Numbness, Paresthesia, Seizure, Syncope, Tingling, Tremors, Difficulty Walking, Weakness, Change in Speech Psychiatric: Reports: Homicidal Ideation, Mood Lability. Denies: Agitation, Anxiety, Confusion, Cravings, Depression, Hallucinations Hematologic/Lymphatic: Reports: No Symptoms Immunologic: Reports: No Symptoms ED EXAM, BEHAVIORAL HEALTH - Physical Exam Exam: See Below Exam Limited By: No Limitations General Appearance: Alert, WD/WN, No Apparent Distress, Other (Patient feels very tired. She reports he was partying till 3:00 this morning. Temperature is 36.1. Heart rate 100 and sinus respiratory is 18 with O2 sats of 98% room air BP 107/94.) Eye Exam: Right Eye: Periorbital Changes, Bilateral Eye: Normal Inspection (No scleral icterus or blepharal pallor.), PERRL Ears: Normal TMs Throat/Mouth: Other Head: Atraumatic, Normocephalic, Other (Tongue is mildly dry and slightly coated . No oropharyngeal infection. Outward signs of any head or facial) Neck: Normal Inspection ( or neck trauma.), Supple, Non-Tender, Full Range of Motion. No: Carotid Bruit, Lymphadenopathy (L), Lymphadenopathy (R) Respiratory/Chest: No Respiratory Distress, Lungs Clear, Normal Breath Sounds, No Accessory Muscle Use, Chest Non-Tender. No: Rhonchi, Wheezing Cardiovascular: Normal Peripheral Pulses, Regular Rate, Rhythm, No Edema, No Gallop, No Murmur, No Rub GI/Abdominal: Normal Bowel Sounds, Soft, Non-Tender, No Organomegaly, No Mass, Pelvis Stable Back Exam: Normal Inspection, Full Range of Motion. No: CVA Tenderness (L), CVA Tenderness (R) Extremities: Normal Inspection, Normal Range of Motion, Non-Tender, No Pedal Edema Neurological: Alert, Normal Mood/Affect, CN II-XII Intact, Normal Cognition, Normal Gait, No Motor/Sensory Deficits, Oriented x 3 Psychiatric: Alert, Normal Affect, Normal Cognition, Normal Mood, Oriented, Homicidal Thoughts (Apparently homicidal thoughts documented on Facebook), Other (And appropriate behavior at times laughing when). No: Agitated, Disoriented, Inattentive, Non-Communicative, Poor Eye Contact, Uncooperative, Withdrawn, Flight of Ideas, Phobic ( but not admitted to me today.), Anabaptist Delusions, Suicidal Plan, Suicidal Thoughts, Tangential Thoughts, Auditory Hallucinations, Visual Hallucinations, Grandiose Thoughts, Pressured Speech, Paranoid Thoughts, Threatening Behavior Skin Exam: Warm ( it was inappropriate.), Dry, Intact, Normal color, No rash COURSE, BEHAVIORAL HEALTH COMP - Course Vital Signs: Last Vital Signs Temp 36.1 C 09/14/20 10:15 Pulse 100 09/14/20 10:15 Resp 18 09/14/20 10:15 BP 107/94 H 09/14/20 10:15 Pulse Ox 98 09/14/20 10:15 Orders, Labs, Meds: Active Orders 24 hr Category Date Time Status CULTURE URINE [RM] Stat Lab 09/14/20 10:15 Received Laboratory Tests 09/14/20 09/14/20 09/14/20 Range/Units 10:10 10:15 10:15 WBC (3.98-10.04) K/mm3 RBC (3.98-5.22) M/mm3 Hgb (11.2-15.7) gm/dl Hct (34.1-44.9) % MCV (79.4-94.8) fl MCH (25.6-32.2) pg MCHC (32.2-35.5) g/dl RDW Std Deviation (36.4-46.3) fL Plt Count (182-369) K/mm3 MPV (9.4-12.3) fl Neut % (Auto) (34.0-71.1) % Lymph % (Auto) (19.3-51.7) % Power % (Auto) (4.7-12.5) % Eos % (Auto) (0.7-5.8) Baso % (Auto) (0.1-1.2) % Neut # (Auto) (1.56-6.13) K/mm3 Lymph # (Auto) (1.18-3.74) K/mm3 Power # (Auto) (0.24-0.36) K/mm3 Eos # (Auto) (0.04-0.36) K/mm3 Baso # (Auto) (0.01-0.08) K/mm3 Sodium (136-145) mEq/L Potassium (3.5-5.1) mEq/L Chloride (98-107) mEq/L Carbon Dioxide (21-32) mEq/L Anion Gap (5-15) BUN (7-18) mg/dL Creatinine (0.55-1.02) mg/dL Est Cr Clr Drug Dosing mL/min Estimated GFR (MDRD) (>60) mL/min BUN/Creatinine Ratio (14-18) Glucose (74-106) mg/dL Calcium (8.5-10.1) mg/dL Magnesium (1.8-2.4) mg/dl Total Bilirubin (0.2-1.0) mg/dL AST (15-37) U/L ALT (14-59) U/L Alkaline Phosphatase (46-116) U/L C-Reactive Protein (<1.0) mg/dL Total Protein (6.4-8.2) g/dl Albumin (3.4-5.0) g/dl Globulin gm/dL Albumin/Globulin Ratio (1-2) TSH 3rd Generation (0.358-3.74) uIU/mL Urine Color (Yellow) Urine Appearance (Clear) Urine pH (5.0-8.0) Ur Specific [place] (1.005-1.030) Urine Protein (Negative) Urine Glucose (UA) (Negative) Urine Ketones (Negative) Urine Occult Blood (Negative) Urine Nitrite (Negative) Urine Bilirubin (Negative) Urine Urobilinogen (0.2-1.0) Ur Leukocyte Esterase (Negative) Urine RBC (0-5) /hpf Urine WBC (0-5) /hpf Ur Squamous Epith Cells (0-5) /hpf Amorphous Sediment (NOT SEEN) /hpf Urine Bacteria (FEW) /hpf Urine Mucus (FEW) /hpf Urine HCG, Qual Negative (NEGATIVE) Salicylates (2.8-20) mg/dL Urine Opiates Screen Negative (SZNYSS=839) Ur Buprenorphine Scrn Negative (CUTOFF=10) Ur Oxycodone Screen Negative (UUI7FO=774) Urine Methadone Screen Negative (PVNDNV=422) Ur Propoxyphene Screen Negative (DUMWNY=510) Acetaminophen (10-30) ug/mL Ur Barbiturates Screen Negative (FSDVZJ=783) Ur Tricyclics Screen Negative (AAXBUL=587) Ur Phencyclidine Scrn Negative (CUTOFF=25) Ur Amphetamine Screen Negative (TRCJOU=826) U Methamphetamines Scrn Negative (RIXCZG=386) U Benzodiazepines Scrn Negative (TUIFQS=183) U Cocaine Metab Screen Negative (SNLWIY=087) U Marijuana (THC) Screen Negative (CUTOFF=50) Ethyl Alcohol (0.00) gm% Hepatitis C Antibody (NEGATIVE) SARS-CoV-2 RNA (VILMA) Negative (NEGATIVE) 09/14/20 09/14/20 09/14/20 Range/Units 10:15 10:37 10:37 WBC 10.96 H (3.98-10.04) K/mm3 RBC 4.37 (3.98-5.22) M/mm3 Hgb 12.5 (11.2-15.7) gm/dl Hct 38.3 (34.1-44.9) % MCV 87.6 (79.4-94.8) fl MCH 28.6 (25.6-32.2) pg MCHC 32.6 (32.2-35.5) g/dl RDW Std Deviation 42.0 (36.4-46.3) fL Plt Count 426 H (182-369) K/mm3 MPV 8.9 L (9.4-12.3) fl Neut % (Auto) 71.6 H (34.0-71.1) % Lymph % (Auto) 15.2 L (19.3-51.7) % Power % (Auto) 7.6 (4.7-12.5) % Eos % (Auto) 5.0 (0.7-5.8) Baso % (Auto) 0.5 (0.1-1.2) % Neut # (Auto) 7.85 H (1.56-6.13) K/mm3 Lymph # (Auto) 1.67 (1.18-3.74) K/mm3 Power # (Auto) 0.83 H (0.24-0.36) K/mm3 Eos # (Auto) 0.55 H (0.04-0.36) K/mm3 Baso # (Auto) 0.05 (0.01-0.08) K/mm3 Sodium 143 (136-145) mEq/L Potassium 3.3 L (3.5-5.1) mEq/L Chloride 105 (98-107) mEq/L Carbon Dioxide 27 (21-32) mEq/L Anion Gap 14.3 (5-15) BUN 13 (7-18) mg/dL Creatinine 0.8 (0.55-1.02) mg/dL Est Cr Clr Drug Dosing 97.27 mL/min Estimated GFR (MDRD) > 60 (>60) mL/min BUN/Creatinine Ratio 16.3 (14-18) Glucose 96 (74-106) mg/dL Calcium 8.6 (8.5-10.1) mg/dL Magnesium 2.0 (1.8-2.4) mg/dl Total Bilirubin 0.3 (0.2-1.0) mg/dL AST 19 (15-37) U/L ALT 31 (14-59) U/L Alkaline Phosphatase 67 (46-116) U/L C-Reactive Protein 3.0 H* (<1.0) mg/dL Total Protein 6.7 (6.4-8.2) g/dl Albumin 3.2 L (3.4-5.0) g/dl Globulin 3.5 gm/dL Albumin/Globulin Ratio 0.9 L (1-2) TSH 3rd Generation (0.358-3.74) uIU/mL Urine Color Light yellow (Yellow) Urine Appearance Slt cloudy H (Clear) Urine pH 6.5 (5.0-8.0) Ur Specific [place] > or = 1.030 (1.005-1.030) Urine Protein Negative (Negative) Urine Glucose (UA) Negative (Negative) Urine Ketones Negative (Negative) Urine Occult Blood Negative (Negative) Urine Nitrite Negative (Negative) Urine Bilirubin Negative (Negative) Urine Urobilinogen 0.2 (0.2-1.0) Ur Leukocyte Esterase Trace H (Negative) Urine RBC 0-5 (0-5) /hpf Urine WBC 10-20 H (0-5) /hpf Ur Squamous Epith Cells 5-10 H (0-5) /hpf Amorphous Sediment Many H (NOT SEEN) /hpf Urine Bacteria Many H (FEW) /hpf Urine Mucus Few (FEW) /hpf Urine HCG, Qual (NEGATIVE) Salicylates (2.8-20) mg/dL Urine Opiates Screen (HCYLMA=294) Ur Buprenorphine Scrn (CUTOFF=10) Ur Oxycodone Screen (HNP2QD=552) Urine Methadone Screen (WBLSMN=403) Ur Propoxyphene Screen (YJJDDZ=663) Acetaminophen 0 L (10-30) ug/mL Ur Barbiturates Screen (KIOZOF=572) Ur Tricyclics Screen (SBUBMJ=455) Ur Phencyclidine Scrn (CUTOFF=25) Ur Amphetamine Screen (DDKSHP=196) U Methamphetamines Scrn (QMCDKX=521) U Benzodiazepines Scrn (LJCUTH=463) U Cocaine Metab Screen (KPEHVU=378) U Marijuana (THC) Screen (CUTOFF=50) Ethyl Alcohol 0.00 (0.00) gm% Hepatitis C Antibody (NEGATIVE) SARS-CoV-2 RNA (VILMA) (NEGATIVE) 09/14/20 09/14/20 09/14/20 Range/Units 10:37 10:37 10:37 WBC (3.98-10.04) K/mm3 RBC (3.98-5.22) M/mm3 Hgb (11.2-15.7) gm/dl Hct (34.1-44.9) % MCV (79.4-94.8) fl MCH (25.6-32.2) pg MCHC (32.2-35.5) g/dl RDW Std Deviation (36.4-46.3) fL Plt Count (182-369) K/mm3 MPV (9.4-12.3) fl Neut % (Auto) (34.0-71.1) % Lymph % (Auto) (19.3-51.7) % Power % (Auto) (4.7-12.5) % Eos % (Auto) (0.7-5.8) Baso % (Auto) (0.1-1.2) % Neut # (Auto) (1.56-6.13) K/mm3 Lymph # (Auto) (1.18-3.74) K/mm3 Power # (Auto) (0.24-0.36) K/mm3 Eos # (Auto) (0.04-0.36) K/mm3 Baso # (Auto) (0.01-0.08) K/mm3 Sodium (136-145) mEq/L Potassium (3.5-5.1) mEq/L Chloride (98-107) mEq/L Carbon Dioxide (21-32) mEq/L Anion Gap (5-15) BUN (7-18) mg/dL Creatinine (0.55-1.02) mg/dL Est Cr Clr Drug Dosing mL/min Estimated GFR (MDRD) (>60) mL/min BUN/Creatinine Ratio (14-18) Glucose (74-106) mg/dL Calcium (8.5-10.1) mg/dL Magnesium (1.8-2.4) mg/dl Total Bilirubin (0.2-1.0) mg/dL AST (15-37) U/L ALT (14-59) U/L Alkaline Phosphatase (46-116) U/L C-Reactive Protein (<1.0) mg/dL Total Protein (6.4-8.2) g/dl Albumin (3.4-5.0) g/dl Globulin gm/dL Albumin/Globulin Ratio (1-2) TSH 3rd Generation 3.718 (0.358-3.74) uIU/mL Urine Color (Yellow) Urine Appearance (Clear) Urine pH (5.0-8.0) Ur Specific [place] (1.005-1.030) Urine Protein (Negative) Urine Glucose (UA) (Negative) Urine Ketones (Negative) Urine Occult Blood (Negative) Urine Nitrite (Negative) Urine Bilirubin (Negative) Urine Urobilinogen (0.2-1.0) Ur Leukocyte Esterase (Negative) Urine RBC (0-5) /hpf Urine WBC (0-5) /hpf Ur Squamous Epith Cells (0-5) /hpf Amorphous Sediment (NOT SEEN) /hpf Urine Bacteria (FEW) /hpf Urine Mucus (FEW) /hpf Urine HCG, Qual (NEGATIVE) Salicylates 1.2 L (2.8-20) mg/dL Urine Opiates Screen (IGLJIO=023) Ur Buprenorphine Scrn (CUTOFF=10) Ur Oxycodone Screen (ETD5EM=575) Urine Methadone Screen (KIRVYB=722) Ur Propoxyphene Screen (GTWMYY=466) Acetaminophen (10-30) ug/mL Ur Barbiturates Screen (KGEEYI=895) Ur Tricyclics Screen (MPRSQA=371) Ur Phencyclidine Scrn (CUTOFF=25) Ur Amphetamine Screen (TZDLEY=402) U Methamphetamines Scrn (CCSNOL=723) U Benzodiazepines Scrn (PMRMEP=176) U Cocaine Metab Screen (VKWLZS=703) U Marijuana (THC) Screen (CUTOFF=50) Ethyl Alcohol (0.00) gm% Hepatitis C Antibody Negative (NEGATIVE) SARS-CoV-2 RNA (VILMA) (NEGATIVE) Re-Assessment/Re-Exam: 35-year-old female brought to the ED by local audio visual specialist's department here in [place] under court order. She has a court order signed by states service member for admission to a psychiatric facility for evaluation due to concerns of planning to buy a gun and shoot as many people as possible at [employer] where she is employed at this time. Patient has a history of bipolar affective disorder dating back at least 2 to 3 years. This is aggravated by continued use of methamphetamines and alcohol. Patient reports that she went back on her medications 2 days ago. She was off medications for at least a week. At the time of examination she is alert quiet and is handcuffed with her hands in front of her body at this time. She was cooperative with examination. Appears to have normal moods with no active hallucinations at this time. Could not get a firm timeframe when she last used methamphetamines but it sounds like within the last 48 hours. Sounds like rather continued use on a daily basis for at least a week to 10 days. Plan urine for drug screen. CBC ,CMP ,CRP ,TSH and beta-hCG to be done. Serum salicylates and acetaminophen levels to be obtained as well as ethanol levels. Re-Assessment/Re-Exam Date: 09/14/20 (White count is upper limits of normal at 10.96. Auto differential is 71.6% neutrophils. Hemoglobin is 12.5 with a hematocrit of 38.3 platelet counts 426,000 slightly elevated. Sodium is 143 with a potassium of 3.3 slightly low. Chloride 105 with bicarb of 27. Anion gap 14.3 BUN is 13 with a creatinine of 0.8 glucose is 96 with a calcium of 8.6 magnesium is 2.0. Liver function is normal C-reactive protein is 3.0. Total protein is 6.7 with an albumin fraction low at 3.2. TSH is 3.718. Urinalysis slightly cloudy with a trace of leukocyte esterase. The smear shows 10-20 WBCs per high-power field and many amorphous sediment and bacteria. Urine culture ordered. Patient will not be treated with antibiotics as currently she has no symptoms of urinary tract infection such as frequency urgency or dysuria. Urine drug screen is negative at this point time blood alcohol is 0.00. Salicylates are 1.2 which is low and acetaminophen is 0. Hepatitis C antibody is negative COVID-19 antibody is negative.) Medical Clearance: 09/14/20 12:02 Patient will be transferred to [facility] in [place] psychiatric services with accompanied by [employer] deputies. Departure - Departure Time of Disposition: 12:28 Disposition: DC/Tfer to Psych Hosp/Unit 65 Condition: Fair Clinical Impression: Bipolar affective disorder, current episode hypomanic, Alcohol abuse, Methamphetamine use disorder, moderate, dependence - Discharge Information Referrals: Michael Alvarez MD [Primary Care Provider] - Forms: ED Department Discharge Sepsis Event Note (ED) - Evaluation Sepsis Screening Result: No Definite Risk - Focused Exam Vital Signs: Vital Signs Temp Pulse Resp BP Pulse Ox 09/14/20 10:15 36.1 C 100 18 107/94 H 98 - My Orders Last 24 Hours: My Active Orders 09/14/20 10:15 CULTURE URINE [RM] Stat - Assessment/Plan Last 24 Hours: My Active Orders 09/14/20 10:15 CULTURE URINE [RM] Stat
[2020-09-14 11:18] LABS: ACETAMINOPHEN 0 ug/mL (10-30)
== END 2020-09-14 12:30 ==
LOC: JD.ED 10:00
DX: F31.0 Bipolar disorder, current episode hypomanic (principal); F15.99 Other stimulant use, unspecified with unspecified stimulant-induced disorder; Z79.899 Other long term (current) drug therapy; Z20.822 Contact with and (suspected) exposure to COVID-19
CPT/HCPCS: 36415; 80053; 80143; 80179; 80306; 80307; 81001; 81025; 83735; 84443; 85025; 86140; 86803; 87086; 99285; U0002

== ENCOUNTER 2020-11-05 13:39 | Emergency (ER) | payer SELFPAY ==
[2020-11-05] MEDS ORDERED: LORazepam 0.5 MG Tab PO ONE (14:12)
--- NOTE | 2020-11-05 14:41 | EDM.PDOCBH ---
ED HPI GENERAL MEDICAL PROBLEM - General Chief Complaint: Behavioral/Psych Stated Complaint: ANXIETY Time Seen by Provider: 11/05/20 13:52 Source of Information: Reports: Patient History Limitations: Reports: No Limitations - History of Present Illness INITIAL COMMENTS - FREE TEXT/NARRATIVE: 35-year-old female presents the emergency department today with a chief complaint of anxiety. Patient does have a significant psychiatric mental history. She states that she recently started a new job about 2 weeks ago and since then has developed a significant amount of anxiety. She states that she feels overwhelmed and has not had the training that she feels she needs to perform the job effectively. She states this is causing her significant amount of distress and difficulty sleeping. She currently takes hydroxyzine 3 times daily as needed however she states she has not been taking this because it causes her to be drowsy. The patient also takes trazodone as needed at bedtime for sleep. She sees Dr. De La Cruz of her psychiatric issues. She mostly recently seen Dr. Forde about 3 weeks ago and at that time she had not started her new job nor did she have any anxiety issues. She denies any hallucinations, she denies any suicidal or homicidal ideations. I have ordered for the patient to receive 1/2 mg of Ativan. She states she did take a hydroxyzine very early this morning as she was not able to sleep. I do not think this will have any culminating effects. I also ordered labs, urinalysis and a urine drug screen on this patient - Related Data Allergies Allergy/AdvReac Type Severity Reaction Status Date / Time Penicillins Allergy Hives Verified 11/05/20 13:55 Home Meds: Home Meds atoMOXetine [Strattera] 0 mg PO DAILY 09/14/20 [History] ARIPiprazole [Abilify] 5 mg PO DAILY 11/05/20 [History] LORazepam [Ativan] 0.5 mg PO BID PRN #8 tablet 11/05/20 [Rx] Mirtazapine 30 mg PO BEDTIME 11/05/20 [History] hydrOXYzine HCL [Atarax] 25 mg PO TID PRN 11/05/20 [History] traZODone 50 mg PO BEDTIME 11/05/20 [History] Past Medical History Other Respiratory History: denies asthma Other Gastrointestinal History: denies gastrointestinal surgical hx MIME ARTIST History: Reports: , Other (See Below) Other MIME ARTIST History: pt states shes bene but doesnt have any children Psychiatric History: Reports: ADD, ADHD, Addiction, Other (See Below) Other Psychiatric History: possible bipolar, possible schizo, possible richi; 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 has been doing drugs since 28 yrs old; pt smokes,snorts and eats it.last treatment program about 6 months in [place] and feels it was about 9 month. - Past Surgical History Female Surgical History: Reports: Other (See Below) Other Female Surgeries/Procedures: pelvic mass Social & Family History - Tobacco Use Tobacco Use Status *Q: Never Tobacco User - Caffeine Use Caffeine Use: Reports: Soda - Recreational Drug Use Recreational Drug Use: No - Living Situation & Occupation Living situation: Reports: Single Occupation: Employed ED ROS GENERAL - Review of Systems Review Of Systems: Comprehensive ROS is negative, except as noted in HPI. ED EXAM, BEHAVIORAL HEALTH - Physical Exam Exam: See Below Exam Limited By: No Limitations General Appearance: Alert, WD/WN, No Apparent Distress Ears: Normal External Exam, Hearing Grossly Normal Nose: Normal Inspection Throat/Mouth: Normal Inspection, Normal Lips, Normal Voice, No Airway Compromise Head: Atraumatic, Normocephalic Neck: Normal Inspection, Supple, Non-Tender, Full Range of Motion Respiratory/Chest: No Respiratory Distress, No Accessory Muscle Use Cardiovascular: Normal Peripheral Pulses, Regular Rate, Rhythm, No Murmur GI/Abdominal: No Distention (Female) Exam: Deferred Rectal (Female) Exam: Deferred Back Exam: Normal Inspection, Full Range of Motion Extremities: Normal Inspection, Normal Range of Motion, Non-Tender, No Pedal Edema, Normal Capillary Refill Neurological: Alert, Normal Mood/Affect, Normal Cognition Psychiatric: Alert, Normal Affect, Normal Cognition, Normal Mood, Oriented Skin Exam: Warm, Dry, Intact, Normal color, No rash COURSE, BEHAVIORAL HEALTH COMP - Course Vital Signs: Last Vital Signs Temp 97.4 F 11/05/20 13:52 Pulse 86 11/05/20 13:52 Resp 16 11/05/20 13:52 BP 130/80 11/05/20 13:52 Pulse Ox 95 11/05/20 13:52 Orders, Labs, Meds: Laboratory Tests 04/03/21 04/03/21 04/03/21 Range/Units 14:57 14:57 15:10 WBC 12.40 H (3.98-10.04) K/mm3 RBC 4.91 (3.98-5.22) M/mm3 Hgb 13.8 (11.2-15.7) gm/dl Hct 41.3 (34.1-44.9) % MCV 84.1 D (79.4-94.8) fl MCH 28.1 (25.6-32.2) pg MCHC 33.4 (32.2-35.5) g/dl RDW Std Deviation 36.7 (36.4-46.3) fL Plt Count 404 H (182-369) K/mm3 MPV 9.2 L (9.4-12.3) fl Neut % (Auto) 71.6 H (34.0-71.1) % Lymph % (Auto) 20.0 (19.3-51.7) % [place] % (Auto) 5.4 (4.7-12.5) % Eos % (Auto) 2.3 (0.7-5.8) Baso % (Auto) 0.5 (0.1-1.2) % Neut # (Auto) 8.89 H (1.56-6.13) K/mm3 Lymph # (Auto) 2.48 (1.18-3.74) K/mm3 [place] # (Auto) 0.67 H (0.24-0.36) K/mm3 Eos # (Auto) 0.28 (0.04-0.36) K/mm3 Baso # (Auto) 0.06 (0.01-0.08) K/mm3 Manual Slide Review Sodium 142 (136-145) mEq/L Potassium 3.9 (3.5-5.1) mEq/L Chloride 105 (98-107) mEq/L Carbon Dioxide 26 (21-32) mEq/L Anion Gap 14.9 (5-15) BUN 9 (7-18) mg/dL Creatinine 0.9 (0.55-1.02) mg/dL Est Cr Clr Drug Dosing 86.46 mL/min Estimated GFR (MDRD) > 60 (>60) mL/min BUN/Creatinine Ratio 10.0 L (14-18) Glucose 85 (74-106) mg/dL Calcium 9.1 (8.5-10.1) mg/dL Magnesium 2.4 (1.8-2.4) mg/dl Total Bilirubin 0.3 (0.2-1.0) mg/dL AST 18 (15-37) U/L ALT 28 (14-59) U/L Alkaline Phosphatase 46 (46-116) U/L Total Protein 7.7 (6.4-8.2) g/dl Albumin 3.7 (3.4-5.0) g/dl Globulin 4.0 gm/dL Albumin/Globulin Ratio 0.9 L (1-2) TSH 3rd Generation 0.892 (0.358-3.74) uIU/mL Urine Color Yellow (Yellow) Urine Appearance Slt cloudy H (Clear) Urine pH 7.0 (5.0-8.0) Ur Specific [place] 1.020 (1.005-1.030) Urine Protein Negative (Negative) Urine Glucose (UA) Negative (Negative) Urine Ketones Negative (Negative) Urine Occult Blood 1+ H (Negative) Urine Nitrite Negative (Negative) Urine Bilirubin Negative (Negative) Urine Urobilinogen 0.2 (0.2-1.0) Ur Leukocyte Esterase Negative (Negative) Urine RBC 0-5 (0-5) /hpf Urine WBC 0-5 (0-5) /hpf Ur Squamous Epith Cells 0-5 (0-5) /hpf Urine Bacteria Few (FEW) /hpf Urine Mucus Few (FEW) /hpf Urine Opiates Screen (LFFSGC=673) Ur Buprenorphine Scrn (CUTOFF=10) Ur Oxycodone Screen (CVM8HC=495) Urine Methadone Screen (TLHKBB=494) Ur Propoxyphene Screen (HHTWZV=641) Ur Barbiturates Screen (BQAPRK=882) Ur Tricyclics Screen (KGNYEG=794) Ur Phencyclidine Scrn (CUTOFF=25) Ur Amphetamine Screen (OGCUFZ=436) U Methamphetamines Scrn (IZBTQU=887) U Benzodiazepines Scrn (KPPJEH=501) U Cocaine Metab Screen (ZNUNFE=797) U Marijuana (THC) Screen (CUTOFF=50) 11/05/20 Range/Units 15:10 WBC (3.98-10.04) K/mm3 RBC (3.98-5.22) M/mm3 Hgb (11.2-15.7) gm/dl Hct (34.1-44.9) % MCV (79.4-94.8) fl MCH (25.6-32.2) pg MCHC (32.2-35.5) g/dl RDW Std Deviation (36.4-46.3) fL Plt Count (182-369) K/mm3 MPV (9.4-12.3) fl Neut % (Auto) (34.0-71.1) % Lymph % (Auto) (19.3-51.7) % [place] % (Auto) (4.7-12.5) % Eos % (Auto) (0.7-5.8) Baso % (Auto) (0.1-1.2) % Neut # (Auto) (1.56-6.13) K/mm3 Lymph # (Auto) (1.18-3.74) K/mm3 [place] # (Auto) (0.24-0.36) K/mm3 Eos # (Auto) (0.04-0.36) K/mm3 Baso # (Auto) (0.01-0.08) K/mm3 Manual Slide Review Sodium (136-145) mEq/L Potassium (3.5-5.1) mEq/L Chloride (98-107) mEq/L Carbon Dioxide (21-32) mEq/L Anion Gap (5-15) BUN (7-18) mg/dL Creatinine (0.55-1.02) mg/dL Est Cr Clr Drug Dosing mL/min Estimated GFR (MDRD) (>60) mL/min BUN/Creatinine Ratio (14-18) Glucose (74-106) mg/dL Calcium (8.5-10.1) mg/dL Magnesium (1.8-2.4) mg/dl Total Bilirubin (0.2-1.0) mg/dL AST (15-37) U/L ALT (14-59) U/L Alkaline Phosphatase (46-116) U/L Total Protein (6.4-8.2) g/dl Albumin (3.4-5.0) g/dl Globulin gm/dL Albumin/Globulin Ratio (1-2) TSH 3rd Generation (0.358-3.74) uIU/mL Urine Color (Yellow) Urine Appearance (Clear) Urine pH (5.0-8.0) Ur Specific [place] (1.005-1.030) Urine Protein (Negative) Urine Glucose (UA) (Negative) Urine Ketones (Negative) Urine Occult Blood (Negative) Urine Nitrite (Negative) Urine Bilirubin (Negative) Urine Urobilinogen (0.2-1.0) Ur Leukocyte Esterase (Negative) Urine RBC (0-5) /hpf Urine WBC (0-5) /hpf Ur Squamous Epith Cells (0-5) /hpf Urine Bacteria (FEW) /hpf Urine Mucus (FEW) /hpf Urine Opiates Screen Negative (RYDZLY=552) Ur Buprenorphine Scrn Negative (CUTOFF=10) Ur Oxycodone Screen Negative (VTY1EA=641) Urine Methadone Screen Negative (KNAPDT=263) Ur Propoxyphene Screen Negative (VJHSTV=570) Ur Barbiturates Screen Negative (MPARNN=367) Ur Tricyclics Screen Negative (ZHSRTG=738) Ur Phencyclidine Scrn Negative (CUTOFF=25) Ur Amphetamine Screen Negative (MMGYJN=236) U Methamphetamines Scrn Negative (IMULQS=033) U Benzodiazepines Scrn Negative (QQIPKN=426) U Cocaine Metab Screen Negative (HSRHZQ=907) U Marijuana (THC) Screen Negative (CUTOFF=50) Medications Discontinued Medications Generic Name Dose Route Start Last Admin Trade Name Freq PRN Reason Stop Dose Admin Lorazepam 0.5 mg 11/05/20 14:12 11/05/20 14:22 Lorazepam 0.5 Mg Tab PO 11/05/20 14:13 0.5 mg ONETIME ONE Administration Re-Assessment/Re-Exam: Hematology reveals a WBC of 10.01, hemoglobin 14.6, hematocrit 43.6 chemistry reveals a sodium of 139, potassium 4.0, anion gap 19.0, BUN 19, creatinine 1.0, glucose 107, total bilirubin 1.3, AST 20, ALT 20, magnesium 2.0, C-reactive protein 12.7 Urinalysis shows 1+ protein, 3+ ketones, 1+ bilirubin, leuk esterase is negative, nitrite negative urine hCG negative Patient states she is feeling better after receiving a liter of IV fluids, Zofran for nausea and Toradol for abdominal pain. She states she is ready to go home. I will send her home with a prescription for Zofran as needed. Patient states she is feeling much better after the Ativan. Patient will be discharged to home with a prescription for Ativan 0.5 mg twice daily as needed. I have spoke with her at length regarding discontinuing the hydroxyzine while taking the Ativan. I have also also discussed with her that she should not take the Ativan at bedtime with her trazodone. She will need to follow-up with Dr. De La Cruz this week for reevaluation and to have a long-term anxiety medication prescribed. Departure - Departure Time of Disposition: 16:02 Disposition: Home, Self-Care 01 Condition: Good Clinical Impression: Anxiety - Discharge Information Prescriptions: LORazepam [Ativan] 0.5 mg PO BID PRN #8 tablet PRN Reason: Anxiety Referrals: Michael Alvarez MD [Primary Care Provider] - Forms: ED Department Discharge Additional Instructions: You were seen in the emergency department today with complaints of anxiety. Labs were completed and these were all unremarkable. Your TSH is also within normal limits. You were given Ativan while in the emergency department and you did state that this helped with your anxiety. I have sent prescription to your pharmacy for Ativan. You may take this twice daily as needed for anxiety in place of your hydroxyzine. Do not take the hydroxyzine along with the Ativan. Do not take the Ativan at bedtime with the trazodone. You will need to follow- up with Dr. De La Cruz this week for reevaluation of your anxiety. Should your condition worsen or change do not hesitate returning to the emergency department. Sepsis Event Note (ED) - Evaluation Sepsis Screening Result: No Definite Risk - Focused Exam Vital Signs: Vital Signs Temp Pulse Resp BP Pulse Ox 11/05/20 13:52 97.4 F 86 16 130/80 95
== END 2020-11-05 16:33 | disposition home or self-care (01) ==
LOC: JD.ED 13:39
DX: F41.9 Anxiety disorder, unspecified (principal); Z88.0 Allergy status to penicillin; Z79.899 Other long term (current) drug therapy
CPT/HCPCS: 36415; 80053; 80306; 81001; 83735; 84443; 85025; 99283; A9270

== ENCOUNTER 2022-07-15 18:21 | Emergency (ER) | payer MEDICAID ==
[2022-07-15] MEDS ORDERED: hydrOXYzine HCl 25 MG Tab PO ONE (21:34)
== END 2022-07-15 22:10 | disposition home or self-care (01) ==
LOC: JD.ED 18:21
DX: F25.0 Schizoaffective disorder, bipolar type (principal); I10 Essential (primary) hypertension; Z88.0 Allergy status to penicillin; Z79.899 Other long term (current) drug therapy
CPT/HCPCS: 99284; A9270

== ENCOUNTER 2022-09-05 17:05 | Emergency (ER) | payer MEDICAID ==
[2022-09-05 19:23] LABS: ESTIMATED GFR 86 mL/min (>60)
[2022-09-05 19:26] LABS: ACETAMINOPHEN 0 ug/mL (10-30)
[2022-09-05] MEDS ORDERED: Potassium Chloride 20 MEQ Tab.ER PO ONE (21:19)
[2022-09-05 21:37] LABS: CORONAVIRUS COVID-19 NAA NEGATIVE (NEGATIVE)
== END 2022-09-05 22:04 ==
LOC: JD.ED 17:05
DX: F15.10 Other stimulant abuse, uncomplicated (principal); F12.90 Cannabis use, unspecified, uncomplicated; R45.851 Suicidal ideations; E87.6 Hypokalemia; F17.210 Nicotine dependence, cigarettes, uncomplicated; Z88.0 Allergy status to penicillin; Z20.822 Contact with and (suspected) exposure to COVID-19
CPT/HCPCS: 0241U; 36415; 80053; 80143; 80179; 80306; 80307; 84443; 84702; 85025; 93005; 99285; 93010

== ENCOUNTER 2022-09-06 15:50 | Emergency (ER) | payer MEDICAID ==
[2022-09-06] MEDS ORDERED: OLANZapine 10 MG Vial IM ONE (18:48)
[2022-09-06] MEDS ORDERED: Zolpidem 10 MG Tab PO ONE (20:53)
== END 2022-09-07 05:50 ==
LOC: JD.ED 15:50
DX: R45.851 Suicidal ideations (principal); I10 Essential (primary) hypertension; F17.210 Nicotine dependence, cigarettes, uncomplicated; Z88.0 Allergy status to penicillin
CPT/HCPCS: 36415; 80053; 80143; 80179; 80306; 80307; 81025; 84443; 85025; 93005; 96372; 99285; A9270; J3490; 93010; 99284

== ENCOUNTER 2023-11-20 12:14 | Emergency (ER) | payer MEDICAID ==
[2023-11-20 13:10] LABS: BASOPHILS ABSOLUTE AUTO 0.1 K/mm3 (0.0-0.2); BASOPHILS PERCENT AUTO 0.6 % (0.0-1.0); EOSINOPHILS ABSOLUTE AUTO 0.3 K/mm3 (0.0-0.4); EOSINOPHILS PERCENT AUTO 2.7 % (0.0-6.0); HEMATOCRIT 47.9 % (37.0-47.0); HEMOGLOBIN 16.4 gm/dl (12.0-16.0); IMMATURE GRAN ABSOLUTE AUTO 0.04 K/mm3 (0.00-0.05); IMMATURE GRAN PERCENT AUTO 0.3 % (0.0-0.4); LYMPHOCYTES ABSOLUTE AUTO 2.3 K/mm3 (1.0-4.8); LYMPHOCYTES PERCENT AUTO 19.7 % (24.0-44.0); MEAN CORPUSCULAR HEMOGLOBIN 28.1 pg (28.0-32.0); MEAN CORPUSCULAR HGB CONC 34.2 g/dl (32.0-36.0); MEAN CORPUSCULAR VOLUME 82.2 fl (83.0-99.0); MEAN PLATELET VOLUME 8.9 fl (9.4-12.3); MONOCYTES ABSOLUTE AUTO 0.7 K/mm3 (0.0-0.8); MONOCYTES PERCENT AUTO 6.1 % (0.0-8.0); NEUTROPHILS ABSOLUTE AUTO 8.2 K/mm3 (1.8-7.7); NEUTROPHILS PERCENT AUTO 70.6 % (41.0-71.0); PLATELET COUNT,PLT 374 K/mm3 (150-400); RED BLOOD CELL COUNT 5.83 M/mm3 (4.10-5.30); WHITE BLOOD CELL COUNT,WBC 11.61 K/mm3 (3.9-11.3)
[2023-11-20 13:36] LABS: ALBUMIN 3.7 g/dl (3.4-5.0); ANION GAP 13.9 (5-15); BILIRUBIN TOTAL 0.4 mg/dL (0.2-1.0); BUN/CREATININE RATIO 18.8 (14-18); CALCIUM 9.1 mg/dL (8.5-10.1); CREATININE 0.8 mg/dL (0.55-1.02); EST CRCL DRUG DOSING (CG) 94.54 mL/min; POTASSIUM,K 3.9 mEq/L (3.5-5.1); PROTEIN TOTAL,TP 7.5 g/dl (6.4-8.2); TSH 2.457 uIU/mL (0.358-3.74)
[2023-11-20 13:46] LABS: CORONAVIRUS COVID-19 NAA NEGATIVE (NEGATIVE); INFLUENZA A NAA NEGATIVE (NEGATIVE); RESPIRATORY SYNCYTIAL VIR NAA NEGATIVE (NEGATIVE)
[2023-11-20 13:56] LABS: BARBITURATE SCREEN,URINE NEGATIVE (CUTOFF=200); BENZODIAZEPINES SCREEN,URINE NEGATIVE (CUTOFF=150); BUPRENORPHINE SCREEN,URINE NEGATIVE (CUTOFF=10); METHADONE SCREEN, URINE NEGATIVE (CUTOFF=200); METHAMPHETAMINES SCREEN, URINE NEGATIVE (CUTOFF=500); OXYCODONE SCREEN,URINE NEGATIVE (CUT0FF=100); THC SCREEN,URINE 20 NG/ML PRESUMPTIVE POSITIVE (CUTOFF=50)
[2023-11-20 14:00] LABS: AMPHETAMINES SCREEN, URINE NEGATIVE (CUTOFF=500)
[2023-11-20] MEDS: Nicotine Polacrilex 2 MG Gum CHEW PRN (16:00)
== END 2023-11-20 16:10 ==
LOC: JD.ED 12:14
DX: F31.70 Bipolar disorder, currently in remission, most recent episode unspecified (principal); I10 Essential (primary) hypertension; Z88.0 Allergy status to penicillin; Z79.899 Other long term (current) drug therapy
CPT/HCPCS: 0241U; 36415; 80053; 80143; 80179; 80306; 80307; 84443; 84703; 85025; 99285; A9270

== ENCOUNTER 2024-02-18 11:13 | Emergency (ER) | payer MEDICAID ==
[2024-02-18 12:02] LABS: BASOPHILS ABSOLUTE AUTO 0.1 K/mm3 (0.0-0.2); BASOPHILS PERCENT AUTO 0.5 % (0.0-1.0); EOSINOPHILS ABSOLUTE AUTO 0.4 K/mm3 (0.0-0.4); EOSINOPHILS PERCENT AUTO 2.9 % (0.0-6.0); HEMATOCRIT 46.3 % (37.0-47.0); HEMOGLOBIN 15.6 gm/dl (12.0-16.0); IMMATURE GRAN ABSOLUTE AUTO 0.04 K/mm3 (0.00-0.05); IMMATURE GRAN PERCENT AUTO 0.3 % (0.0-0.4); LYMPHOCYTES ABSOLUTE AUTO 2.6 K/mm3 (1.0-4.8); LYMPHOCYTES PERCENT AUTO 21.7 % (24.0-44.0); MEAN CORPUSCULAR HEMOGLOBIN 28.6 pg (28.0-32.0); MEAN CORPUSCULAR HGB CONC 33.7 g/dl (32.0-36.0); MEAN PLATELET VOLUME 9.1 fl (9.4-12.3); MONOCYTES ABSOLUTE AUTO 0.7 K/mm3 (0.0-0.8); MONOCYTES PERCENT AUTO 5.4 % (0.0-8.0); NEUTROPHILS ABSOLUTE AUTO 8.4 K/mm3 (1.8-7.7); NEUTROPHILS PERCENT AUTO 69.2 % (41.0-71.0); PLATELET COUNT,PLT 396 K/mm3 (150-400); RED BLOOD CELL COUNT 5.45 M/mm3 (4.10-5.30); WHITE BLOOD CELL COUNT,WBC 12.07 K/mm3 (3.9-11.3)
[2024-02-18 12:31] LABS: ACETAMINOPHEN 0 ug/mL (10-30); ALANINE AMINOTRANSFERASE,ALT 30 U/L (14-59); ALBUMIN 3.7 g/dl (3.4-5.0); ALKALINE PHOSPHATASE 57 U/L (46-116); ANION GAP 15.3 (5-15); ASPARTATE AMNIOTRANSFERASE,AST 16 U/L (15-37); BILIRUBIN TOTAL 0.8 mg/dL (0.2-1.0); BLOOD UREA NITROGEN,BUN 12 mg/dL (7-18); BUN/CREATININE RATIO 13.3 (14-18); CALCIUM 8.7 mg/dL (8.5-10.1); CARBON DIOXIDE,CO2 25 mEq/L (21-32); CHLORIDE,CL 101 mEq/L (98-107); CREATININE 0.9 mg/dL (0.55-1.02); ESTIMATED GFR 85 mL/min (>60); GLUCOSE RANDOM 116 mg/dL (70-99); HCG QUANTITATIVE < 1.0 mIU/mL; POTASSIUM,K 3.3 mEq/L (3.5-5.1); PROTEIN TOTAL,TP 7.6 g/dl (6.4-8.2); SODIUM,NA 138 mEq/L (136-145); TSH 2.732 uIU/mL (0.358-3.74)
[2024-02-18] MEDS: Nicotine 14 MG/24 Hr Patch TRDERM ONE (12:44)
[2024-02-18] MEDS ORDERED: diphenhydrAMINE 50 MG/ML SDV IM ONE (13:13)
[2024-02-18] MEDS ORDERED: LORazepam 2 MG/ML SDV IM ONE (13:15)
[2024-02-18] MEDS ORDERED: Haloperidol Lactate 5 MG/ML SDV IM ONE (13:16)
[2024-02-18 13:43] LABS: APPEARANCE,URINE CLOUDY (Clear); BILIRUBIN,URINE NEGATIVE (Negative); COLOR,URINE YELLOW (Yellow); GLUCOSE,URINE NEGATIVE (Negative); KETONES,URINE NEGATIVE (Negative); LEUKOCYTE ESTERASE,URINE TRACE (Negative); NITRITE,URINE NEGATIVE (Negative); OCCULT BLOOD,URINE 2+ (Negative); PROTEIN,URINE NEGATIVE (Negative); UROBILINOGEN,URINE 0.2 (0.2-1.0)
[2024-02-18 13:51] LABS: BARBITURATE SCREEN,URINE NEGATIVE (CUTOFF=200); BENZODIAZEPINES SCREEN,URINE NEGATIVE (CUTOFF=150); BUPRENORPHINE SCREEN,URINE NEGATIVE (CUTOFF=10); METHADONE SCREEN, URINE NEGATIVE (CUTOFF=200); METHAMPHETAMINES SCREEN, URINE NEGATIVE (CUTOFF=500); OXYCODONE SCREEN,URINE NEGATIVE (CUT0FF=100); THC SCREEN,URINE 20 NG/ML PRESUMPTIVE POSITIVE (CUTOFF=50)
[2024-02-18 13:52] LABS: AMPHETAMINES SCREEN, URINE NEGATIVE (CUTOFF=500)
[2024-02-18 13:56] LABS: AMORPHOUS SEDIMENT,URINE MANY /hpf (NOT SEEN); BACTERIA,URINE MODERATE /hpf (FEW); MUCUS,URINE MODERATE /hpf (FEW); RBC,URINE 0-5 /hpf (0-5)
[2024-02-18 14:06] LABS: CORONAVIRUS COVID-19 NAA NEGATIVE (NEGATIVE); INFLUENZA A NAA NEGATIVE (NEGATIVE); RESPIRATORY SYNCYTIAL VIR NAA NEGATIVE (NEGATIVE)
[2024-02-18] MEDS ORDERED: Nicotine Polacrilex 2 MG Gum CHEW STA (15:16)
[2024-02-18] MEDS: Potassium Chloride 10 MEQ Tab.ER PO ONE (15:30)
[2024-02-18] MEDS ORDERED: OLANZapine 5 MG Tab PO ONE (17:20)
== END 2024-02-18 18:00 ==
LOC: JD.ED 11:13
DX: R45.851 Suicidal ideations (principal); I10 Essential (primary) hypertension; Z79.899 Other long term (current) drug therapy; Z88.0 Allergy status to penicillin
CPT/HCPCS: 0241U; 36415; 80053; 80143; 80179; 80306; 80307; 81001; 84443; 84702; 85025; 87086; 93005; 99285; A9270; 93010

== ENCOUNTER 2025-02-01 17:18 | Emergency (ER) | payer MEDICAID | END 2025-02-01 17:55 | LOC: JD.ED 17:18 | DX: S01.112A Laceration without foreign body of left eyelid and periocular area, initial encounter (principal); I10 Essential (primary) hypertension; Z88.0 Allergy status to penicillin; Z79.899 Other long term (current) drug therapy; W22.8XXA Striking against or struck by other objects, initial encounter | CPT/HCPCS: 99282; 99283 ==

== ENCOUNTER 2025-07-05 12:14 | Emergency (ER) | payer MEDICAID ==
[2025-07-05 13:09] LABS: BASOPHILS ABSOLUTE AUTO 0.1 K/mm3 (0.0-0.2); BASOPHILS PERCENT AUTO 0.8 % (0.0-1.0); EOSINOPHILS ABSOLUTE AUTO 0.3 K/mm3 (0.0-0.4); EOSINOPHILS PERCENT AUTO 3.9 % (0.0-6.0); IMMATURE GRAN ABSOLUTE AUTO 0.01 K/mm3 (0.00-0.05); IMMATURE GRAN PERCENT AUTO 0.1 % (0.0-0.4); LYMPHOCYTES ABSOLUTE AUTO 2.9 K/mm3 (1.0-4.8); LYMPHOCYTES PERCENT AUTO 33.3 % (24.0-44.0); MEAN PLATELET VOLUME 8.9 fl (9.4-12.3); MONOCYTES ABSOLUTE AUTO 0.6 K/mm3 (0.0-0.8); MONOCYTES PERCENT AUTO 6.5 % (0.0-8.0); NEUTROPHILS ABSOLUTE AUTO 4.9 K/mm3 (1.8-7.7); NEUTROPHILS PERCENT AUTO 55.4 % (41.0-71.0); NRBC ABSOLUTE 0.00 (0.00-0.02); NRBC PERCENT 0.0 % (0.0-0.2); PLATELET COUNT,PLT 345 K/mm3 (150-400); RED BLOOD CELL COUNT 4.78 M/mm3 (4.10-5.30); WHITE BLOOD CELL COUNT,WBC 8.76 K/mm3 (3.9-11.3)
[2025-07-05 13:44] LABS: A/G RATIO 0.9 (1-2); ALANINE AMINOTRANSFERASE,ALT 17.0 U/L (14-59); ASPARTATE AMNIOTRANSFERASE,AST 15.0 U/L (15-37); BILIRUBIN TOTAL 0.3 mg/dL (0.2-1.0); BLOOD UREA NITROGEN,BUN 12.0 mg/dL (7-18); CARBON DIOXIDE,CO2 27.0 mEq/L (21-32); CHLORIDE,CL 104.0 mEq/L (98-107); CREATININE 0.9 mg/dL (0.55-1.02); EST CRCL DRUG DOSING (CG) 82.42 mL/min; ESTIMATED GFR 84.0 mL/min (>60); GLUCOSE RANDOM 90.0 mg/dL (70-99); POTASSIUM,K 3.7 mEq/L (3.5-5.1); PROTEIN TOTAL,TP 6.8 g/dl (6.4-8.2); SODIUM,NA 140.0 mEq/L (136-145)
[2025-07-05 13:47] LABS: ETHANOL BLOOD MEDICAL 0.0 gm% (0.00)
[2025-07-05 14:42] LABS: APPEARANCE,URINE CLEAR (Clear); GLUCOSE,URINE NEGATIVE (Negative); OCCULT BLOOD,URINE NEGATIVE (Negative)
[2025-07-05 15:41] LABS: BUPRENORPHINE SCREEN,URINE NEGATIVE (CUTOFF=10); METHADONE SCREEN, URINE NEGATIVE (CUTOFF=200); METHAMPHETAMINES SCREEN, URINE NEGATIVE (CUTOFF=500); OXYCODONE SCREEN,URINE NEGATIVE (CUT0FF=100); THC SCREEN,URINE 20 NG/ML NEGATIVE (CUTOFF=50)
[2025-07-05 15:43] LABS: AMPHETAMINES SCREEN, URINE NEGATIVE (CUTOFF=500)
== END 2025-07-05 20:24 | disposition critical access hospital (66) ==
LOC: JD.ED 12:14
DX: R45.851 Suicidal ideations (principal); I10 Essential (primary) hypertension; Z79.899 Other long term (current) drug therapy; Z88.0 Allergy status to penicillin
CPT/HCPCS: 36415; 80053; 80143; 80179; 80306; 80307; 81001; 84703; 85025; 87086; 99285